=== PATIENT | male | born 1955 | race Caucasian/White ===

== ENCOUNTER 2019-04-15 16:10 | Emergency (ER) | payer BC ==
--- NOTE | 2019-04-15 16:35 | ED ---
General Adult HPI - General Chief complaint: Extremity Injury, Upper Stated complaint: Thumb injury Time Seen by Provider: 04/15/19 16:20 Source: patient Mode of arrival: ambulatory Limitations: no limitations - History of Present Illness Initial comments: Patient is a 64-year-old male presenting to the emergency Department with complaints of swelling of his right thumb x today. 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 Patient denies any injuries to the thumb. Patient was worried that he was working with chemicals and this made his thumbs follow-up. Patient denies any previous injuries of his thumb or right hand. Patient denies being on blood thinners. Patient denies fever, chills. Patient has no other complaints at this time. - Related Data Allergies Allergy/AdvReac Type Severity Reaction Status Date / Time No Known Allergies Allergy Verified 04/15/19 16:15 Review of Systems ROS Statement: Those systems with pertinent positive or pertinent negative responses have been documented in the HPI. ROS Other: All systems not noted in ROS Statement are negative. Past Medical History Past Medical History: Hypertension History of Any Multi-Drug Resistant Organisms: None Reported Past Surgical History: Orthopedic Surgery Past Psychological History: No Psychological Hx Reported Smoking Status: Never smoker Past Alcohol Use History: Occasional Past Drug Use History: None Reported General Exam - General Exam Comments Initial Comments: GENERAL: Well-appearing, well-nourished and in no acute distress. HEAD: Atraumatic, normocephalic. EYES: Pupils equal round and reactive to light, extraocular movements intact, sclera anicteric, conjunctiva are normal. ENT: TMs normal, nares patent, oropharynx clear without exudates. Moist mucous membranes. NECK: Normal range of motion, supple without lymphadenopathy or JVD. LUNGS: Breath sounds clear to auscultation bilaterally and equal. No wheezes rales or rhonchi. HEART: Regular rate and rhythm without murmurs, rubs or gallops. ABDOMEN: Soft, nontender, normoactive bowel sounds. No guarding, no rebound. No masses appreciated. : Deferred EXTREMITIES: Normal range of motion of right thumb. Patient has mild swelling to the base of the right thumb as well as some mild bruising consistent with a blood vessel rupture. No pain with palpation. Neurovascular intact. No clubbing or cyanosis. NEUROLOGICAL: Cranial nerves II through XII grossly intact. Normal speech, normal gait. PSYCH: Normal mood, normal affect. SKIN: Warm, Dry, normal turgor, no rashes or lesions noted. Limitations: no limitations Course Vital Signs 04/15/19 16:13 Temperature 98.0 F Pulse Rate 82 Respiratory 18 Rate Blood Pressure 163/94 O2 Sat by Pulse 100 Oximetry Medical Decision Making - Medical Decision Making Patient is a 64-year-old male presenting with right thumb swelling and bruising that started today. Patient has been using his hand mostly day, cleaning when he noticed swelling and bruising on his right thumb. On exam patient has mild swelling and bruising of the bases right thumb. Range of motion is normal. Strength is normal. No pain with palpation. His symptoms are consistent with a small blood vessel rupture at the base of his thumb. Discussed using compression and ice. Follow-up with PCP if symptoms persist over 1-2 weeks. Patient is in agreement with this plan of care. Return parameters were discussed with the patient he verbalizes understanding. Patient is stable for discharge at this time. Case discussed with Dr. Sung. Disposition Clinical Impression: Contusion of right thumb Disposition: HOME SELF-CARE Condition: Stable Instructions (If sedation given, give patient instructions): Contusion in Adults (ED) Additional Instructions: Please return to the Emergency Department if symptoms worsen or any other concerns. Follow-up with PCP if symptoms persist over 1 week without improvement. Is patient prescribed a controlled substance at d/c from ED?: No Referrals: Nonstaff,Physician [Primary Care Provider] - 1-2 days
[2019-04-15 16:41] VITALS: BP 163/94; PULSE 82; RESP 18; TEMP 98
== END 2019-04-15 17:03 | disposition home or self-care (01) ==
LOC: EC 16:10
DX: S60.011A Contusion of right thumb without damage to nail, initial encounter (principal); X58.XXXA Exposure to other specified factors, initial encounter; Y92.009 Unspecified place in unspecified non-institutional (private) residence as the place of occurrence of the external cause
CPT/HCPCS: 99283

== ENCOUNTER 2019-10-02 14:44 | Emergency (ER) | payer BC ==
[2019-10-02 14:51] VITALS: BP 174/97; PULSE 82; RESP 20; TEMP 97.5
[2019-10-02] MEDS ORDERED: DIPH,PERTUS(ACELL)TETVAC-LF 0.5 ML VIAL IM ONE (15:02)
--- NOTE | 2019-10-02 15:32 | CT ---
EXAMINATION TYPE: CT brain rica patel DATE OF EXAM: 10/02/2019 COMPARISON: None HISTORY: Fall with right parietal head injury. CT DLP: 1416.[address] of the brain was performed. The ventricles, basal cisterns and sulci overlying the cerebral convexities demonstrate enlargement. There is no evidence for intracranial hemorrhage or sulcal effacement. There is decreased attenuatio n about the periventricular white matter and deep white matter of both cerebral hemispheres, compatib le with chronic small vessel ischemia. No mass effects are seen. If symptoms persist consider MRI. Osseous calvarium is intact. Right parietal laceration noted and small scalp hematoma. IMPRESSION: 1. Age related atrophic and chronic small vessel ischemic change without acute intracranial process seen at this time. CT Cervical Spine: Unenhanced CT of the cervical spine was performed with bone and soft tissue window settings submitted . Coronal and sagittal reconstruction is obtained. There is normal alignment and prevertebral soft tissues. No evidence for acute cervical fracture . Scattered degenerative disc disease and spondylosis. Biapical scarring. IMPRESSION: 1. No evidence for acute fracture or subluxation of the cervical spine.
--- NOTE | 2019-10-02 15:44 | ED ---
Fall HPI - General Chief Complaint: Fall Stated Complaint: head injury Time Seen by Provider: 10/02/19 14:54 Source: patient Mode of arrival: ambulatory - History of Present Illness Initial Comments: 64-year-old male patient presents to the emergency department today for evaluation after sustaining a head injury. Patient states that he slipped on ice and fell striking his head on a [employer] boat trailer. Patient denies any loss of consciousness with this injury. Patient is mostly concerned because he is starting with radiation treatments for prostate cancer tomorrow. Patient denies any current headache, blurred vision, double vision, nausea, or vomiting. Denies any dizziness or weakness. Patient states he does take a baby aspirin daily but denies any use of other anticoagulants or antiplatelet medications. He denies any neck or back pain or other injuries. States his last tetanus vaccine was around 10 years ago. Patient denies any chest pain, shortness of breath, abdominal pain, nausea, vomiting, or difficulties with bowel movements or urination. - Related Data Allergies Allergy/AdvReac Type Severity Reaction Status Date / Time No Known Allergies Allergy Verified 10/02/19 14:51 Review of Systems ROS Statement: Those systems with pertinent positive or pertinent negative responses have been documented in the HPI. ROS Other: All systems not noted in ROS Statement are negative. Past Medical History Past Medical History: Cancer, Hypertension, Prostate Disorder History of Any Multi-Drug Resistant Organisms: None Reported Past Surgical History: Orthopedic Surgery Past Psychological History: No Psychological Hx Reported Smoking Status: Never smoker Past Alcohol Use History: Occasional Past Drug Use History: None Reported General Exam Limitations: no limitations General appearance: alert, in no apparent distress, other (This is a well- developed, well-nourished adult male patient in no acute distress. Vital signs upon presentation are temperature 97.5F, pulse 82, respirations 20, blood pressure 174/97, pulse ox 96% on room air.) Head exam: Present: other (There is a 6 cm laceration noted to the right parietal scalp with surrounding soft tissue swelling and tenderness.) Eye exam: Present: normal appearance, PERRL, EOMI. Absent: scleral icterus, conjunctival injection, nystagmus, periorbital swelling ENT exam: Present: normal exam, normal oropharynx, mucous membranes moist, TM's normal bilaterally (No hemotympanum) Neck exam: Present: normal inspection, full ROM, other (Nontender, no step-off, no deformity to firm midline palpation of the posterior cervical spine. Full range of motion without pain or limitation.). Absent: tenderness, meningismus, lymphadenopathy Respiratory exam: Present: normal lung sounds bilaterally. Absent: respiratory distress, wheezes, rales, rhonchi, stridor Cardiovascular Exam: Present: regular rate, normal rhythm, normal heart sounds. Absent: systolic murmur, diastolic murmur, rubs, gallop, clicks GI/Abdominal exam: Present: soft, normal bowel sounds. Absent: distended, tenderness, guarding, rebound, rigid Extremities exam: Present: normal inspection, full ROM, normal capillary refill. Absent: tenderness, pedal edema, joint swelling, calf tenderness Back exam: Present: normal inspection, other (Nontender, no step-off, no deformity to firm midline palpation of the thoracic and lumbar vertebrae. Full range of motion without pain or limitation.). Absent: vertebral tenderness Neurological exam: Present: alert, oriented X3, CN II-XII intact Psychiatric exam: Present: normal affect, normal mood Skin exam: Present: warm, dry, intact, normal color. Absent: rash Course Vital Signs 10/02/19 14:46 Temperature 97.5 F L Pulse Rate 82 Respiratory 20 Rate Blood Pressure 174/97 O2 Sat by Pulse 96 Oximetry Procedures - Laceration Laceration #1 Consent Obtained: verbal consent Indication: laceration Site: scalp (Right parietal scalp) Size (cm): 6 Description: linear Depth: simple, single layer Pre-repair: irrigated extensively Number of Sutures: 7 Technique: other ([place]) Patient Tolerated Procedure: well, no complications Medical Decision Making - Medical Decision Making 64-year-old male patient presented to the emergency department today for evaluation of laceration with head injury to the right parietal scalp. Physical examination did reveal 6 on a laceration with soft tissue swelling. Patient was neurologically intact with no focal deficits. Wound was repaired as documented. CT brain C-spine were negative for any acute abnormalities. Patient will be discharged home to follow-up with his primary care physician for recheck in 1-2 days. We did discuss signs and symptoms of worsening head injury and infection as well as wound care instructions. He is instructed to return in 7 days to get the deirdre removed. Return parameters were discussed in detail. He verbalizes understanding and agrees with this plan. - Radiology Data Radiology results: report reviewed, image reviewed CT brain C-spine without contrast was obtained. Report is reviewed in its entirety. Impression by Dr. Munson shows age-related atrophic and chronic small vessel ischemic change without acute intracranial process seen at this time. No evidence for acute fracture or subluxation of the cervical spine. Disposition Clinical Impression: Head injury, Scalp laceration, Scalp hematoma Disposition: HOME SELF-CARE Condition: Good Instructions (If sedation given, give patient instructions): Laceration (ED), Staple Care (ED) Additional Instructions: Keep wound clean and dry. Return in 7 days to have the deirdre removed. Monitor for signs of infection including redness, drainage of pus, fever, or chills. Itc marya is normal once the laceration starts to heal. Monitor for signs or symptoms of worsening head injury including but not limited to headache, vomiting, dizziness, or confusion. Follow-up with her primary care physician for recheck in 1-2 days. Return to the emergency department immediately for any new, worsening, or concerning symptoms. Is patient prescribed a controlled substance at d/c from ED?: No Referrals: Nonstaff,Physician [Primary Care Provider] - 1-2 days Time of Disposition: 16:01
== END 2019-10-02 16:09 | disposition home or self-care (01) ==
LOC: EC 14:44
DX: S01.01XA Laceration without foreign body of scalp, initial encounter (principal); M79.89 Other specified soft tissue disorders; C61 Malignant neoplasm of prostate; Z23 Encounter for immunization; Z79.82 Long term (current) use of aspirin; W01.198A Fall on same level from slipping, tripping and stumbling with subsequent striking against other object, initial encounter; Y92.009 Unspecified place in unspecified non-institutional (private) residence as the place of occurrence of the external cause
CPT/HCPCS: 12002; 70450; 72125; 90471; 90715; 99283

== ENCOUNTER → 2020-03-15 | Outpatient (CLI) | payer BC | END | disposition home or self-care (01) | LOC: LABWHC1 09:59 | PROVIDERS: ATTEND Internal Medicine | DX: R05 Cough (principal) | CPT/HCPCS: U0003; C9803 ==

== ENCOUNTER 2020-05-12 16:42 | Emergency (ER) | payer BC ==
[2020-05-12 16:50] VITALS: RESP 18; TEMP 98.2
[2020-05-12] MEDS ORDERED: MORPHINE SULFATE 4 MG/ML SYRINGE IVP STA (17:52)
[2020-05-12] MEDS ORDERED: ONDANSETRON 4 MG/2 ML VIAL IVP STA (17:53)
--- NOTE | 2020-05-12 17:53 | ED ---
General Adult HPI - General Chief complaint: Abdominal Pain Stated complaint: abd pain Time Seen by Provider: 05/12/20 17:11 Source: patient Mode of arrival: ambulatory Limitations: no limitations - History of Present Illness Initial comments: Dictation was produced using [employer] dictation software. please excuse any grammatical, word or spelling errors. This patient was cared for during a federal and state declared state of emergency secondary to Covid 19 Chief Complaint: 65-year-old male presents with abdominal pain History of Present Illness: Is 65-year-old male who has past medical history of kidney stones, hypertension prostate cancer. Patient states that he's had abdominal pain for approximately 3-4 hours. Patient states that his symptoms are similar to his kidney stones however seem different. He states his symptoms started his right upper quadrant however since then it's rated down to his right groin and now it's in his right lower back. Patient states he has history of chronic back pain he gets back injections. Patient has a fever, chills or night sweats. He has had nausea and vomiting and states his emesis appears slightly green. The ROS documented in this emergency department record has been reviewed and confirmed by me. Those systems with pertinent positive or negative responses have been documented in the HPI. All other systems are other negative and/or noncontributory. PHYSICAL EXAM: General Impression: Alert and oriented x3, mild distress secondary to pain HEENT: Normocephalic atraumatic, extra-ocular movements intact, pupils equal and reactive to light bilaterally, mucous membranes moist. Cardiovascular: Heart regular rate and rhythm Chest: Able to complete full sentences, no retractions, no tachypnea Abdomen: abdomen soft, non-tender, non-distended, no organomegaly Musculoskeletal: Pulses present and equal in all extremities, no peripheral edema Motor: no focal deficits noted Neurological: CN II-XII grossly intact, no focal motor or sensory deficits noted Skin: Intact with no visualized rashes Psych: Normal affect and mood ED course: 65-year-old male presents with abdominal pain and flank pain. As upon arrival are within acceptable limits. Does have a history of kidney stones however symptoms today are atypical for his usual kidney stone pain. Does have a constitutional symptoms. His abdomen is soft Computed tomography scan down and pelvis without contrast shows obstructing calculus at the right ureteral pelvic junction. Laboratory evaluation obtained. CBC, coag panel, metabolic panel is unremarkable. Stone is measuring 7 mm with right-sided hydronephrosis. Patient given intravenous fluids and IV analgesia. Patient reevaluated after several hours of observation emergency department. He reports significant improvement of symptoms. There is some suspicion that patient passed the stone spontaneously while in the ER. Nonetheless patient is well-appearing heel be discharge. Told to follow-up with his urologist out of [place]. Patient given prescription for analgesia. Patient agreeable with disposition. EKG interpretation: Ventricular rate 63, normal sinus rhythm, AR interval 198, QRS 90, QTC 452. No AR prolongation, no QTC prolongation, no ST or T-wave changes noted. . Overall, this EKG is unremarkable - Related Data Previous Rx's Medication Instructions Recorded HYDROcodone/APAP 5-325MG [Omak 1 tab PO Q6HR PRN 3 Days #12 tab 05/12/20 5-325] Allergies Allergy/AdvReac Type Severity Reaction Status Date / Time No Known Allergies Allergy Verified 05/12/20 16:48 Review of Systems ROS Statement: Those systems with pertinent positive or pertinent negative responses have been documented in the HPI. ROS Other: All systems not noted in ROS Statement are negative. Past Medical History Past Medical History: Cancer, Hypertension, Prostate Disorder Additional Past Medical History / Comment(s): prostate CA- History of Any Multi-Drug Resistant Organisms: None Reported Past Surgical History: Orthopedic Surgery Past Psychological History: No Psychological Hx Reported Smoking Status: Never smoker Past Alcohol Use History: Occasional Past Drug Use History: None Reported General Exam Limitations: no limitations Course Vital Signs 05/12/20 05/12/20 16:48 19:01 Temperature 98.2 F Pulse Rate 68 65 Respiratory 18 18 Rate Blood Pressure 152/83 114/62 O2 Sat by Pulse 98 96 Oximetry Medical Decision Making - Lab Data Result diagrams: 05/12/20 17:52 05/12/20 17:52 Lab Results 05/12/20 05/12/20 05/12/20 Range/Units 17:52 17:52 17:52 WBC 10.1 (3.8-10.6) k/uL RBC 4.06 L (4.30-5.90) m/uL Hgb 12.8 L (13.0-17.5) gm/dL Hct 39.5 (39.0-53.0) % MCV 97.4 (80.0-100.0) fL MCH 31.4 (25.0-35.0) pg MCHC 32.3 (31.0-37.0) g/dL RDW 13.4 (11.5-15.5) % Plt Count 240 (150-450) k/uL Neutrophils % 79 % Lymphocytes % 10 % Monocytes % 6 % Eosinophils % 3 % Basophils % 0 % Neutrophils # 8.0 H (1.3-7.7) k/uL Lymphocytes # 1.1 (1.0-4.8) k/uL Monocytes # 0.6 (0-1.0) k/uL Eosinophils # 0.3 (0-0.7) k/uL Basophils # 0.0 (0-0.2) k/uL PT 9.5 (9.0-12.0) sec INR 0.9 (<1.2) APTT 22.1 (22.0-30.0) sec Sodium 135 L (137-145) mmol/L Potassium 4.2 (3.5-5.1) mmol/L Chloride 102 (98-107) mmol/L Carbon Dioxide 27 (22-30) mmol/L Anion Gap 6 mmol/L BUN 24 H (9-20) mg/dL Creatinine 1.21 (0.66-1.25) mg/dL Est GFR (CKD-EPI)AfAm 74 (>60 ml/min/1.73 sqM) Est GFR (CKD-EPI)NonAf 64 (>60 ml/min/1.73 sqM) Glucose 110 H (74-99) mg/dL Calcium 10.1 (8.4-10.2) mg/dL Total Bilirubin 0.3 (0.2-1.3) mg/dL AST 34 (17-59) U/L ALT 31 (4-49) U/L Alkaline Phosphatase 95 (38-126) U/L Total Protein 6.6 (6.3-8.2) g/dL Albumin 4.2 (3.5-5.0) g/dL Disposition Clinical Impression: Nephrolithiasis Disposition: HOME SELF-CARE Condition: Good Instructions (If sedation given, give patient instructions): Kidney Stones (ED) Additional Instructions: Follow-up with your urologist. Prescriptions: HYDROcodone/APAP 5-325MG [Omak 5-325] 1 tab PO Q6HR PRN 3 Days #12 tab PRN Reason: Severe Pain Is patient prescribed a controlled substance at d/c from ED?: Yes If prescribed controlled substance>3 days was MAPS reviewed?: Prescribed <3 Days Referrals: Jesica Torres MD [Primary Care Provider] - 1-2 days Time of Disposition: 20:58
[2020-05-12 18:08] LABS: Basophils % (A) 0 %; Eosinophils # (A) 0.3 k/uL (0-0.7); Eosinophils % (A) 3 %; HCT 39.5 % (39.0-53.0); HGB 12.8 gm/dL (13.0-17.5); Lymphocytes # (A) 1.1 k/uL (1.0-4.8); Lymphocytes % (A) 10 %; MCH 31.4 pg (25.0-35.0); MCHC 32.3 g/dL (31.0-37.0); MCV 97.4 fL (80.0-100.0); Monocytes # (A) 0.6 k/uL (0-1.0); Monocytes % (A) 6 %; Neutrophils % (A) 79 %; Platelet Count 240 k/uL (150-450); RBC 4.06 m/uL (4.30-5.90); RDW 13.4 % (11.5-15.5); WBC 10.1 k/uL (3.8-10.6)
[2020-05-12 18:17] LABS: Albumin 4.2 g/dL (3.5-5.0); Calcium 10.1 mg/dL (8.4-10.2); Potassium 4.2 mmol/L (3.5-5.1); Total Bilirubin 0.3 mg/dL (0.2-1.3); Total Protein 6.6 g/dL (6.3-8.2)
[2020-05-12 18:20] LABS: INR 0.9 (<1.2); Partial Thromboplastin Time 22.1 sec (22.0-30.0); Prothrombin Time 9.5 sec (9.0-12.0)
--- NOTE | 2020-05-12 18:50 | CT ---
EXAMINATION TYPE: CT abdomen pelvis wo con DATE OF EXAM: 05/12/2020 COMPARISON: None HISTORY: Right flank and RLQ pain CT DLP: 1161.4 mGycm Automated exposure control for dose reduction was used. Lung bases are clear of consolidation. There is minimal subsegmental atelectasis left lung base. Ther e is no pleural effusion. Heart appears normal. There is no pericardial effusion. Liver spleen stomach pancreas gallbladder appear normal. Bile ducts are not dilated. There is no adre nal mass. There is right-sided perinephric fat stranding. There is right side hydronephrosis with obstructing c alculus measuring 7 mm at the ureteral pelvic junction. There are multiple bilateral renal calculi. T here is 10 mm calculus lower pole left kidney. There are left-sided renal parapelvic cysts. There is no sign of obstruction on the left side. There is no retroperitoneal adenopathy. Bladder distends smoothly. There is no inguinal hernia. There is no free fluid in the pelvis. There is no mesenteric edema. There is no ascites or free air. Appendix is medial and posterior and a ppears normal. There is no evidence of bowel obstruction. The lumbar vertebra have normal alignment. Disc spaces are fairly normal. There is no compression fracture. The hip joints are intact. Bony pelvis is intact. IMPRESSION: Obstructing calculus at the right ureteropelvic junction. Multiple bilateral renal calculi.
[2020-05-12 19:02] VITALS: BP 114/62; PULSE 65
[2020-05-12] MEDS ORDERED: HYDROmorphone 1 MG/ML 1 ML SYRINGE IVP STA (19:03)
[2020-05-12] MEDS ORDERED: SODIUM CHLORIDE 0.9% 1,000 ML IV STA ×2 (19:06→19:34)
[2020-05-12] MEDS ORDERED: KETOROLAC 15 MG/ML 1 ML VIAL IVP STA (19:06)
[2020-05-12 21:08] LABS: Appearance,Urine Clear (Clear); Bilirubin,Urine Negative (Negative); Blood,Urine Moderate (Negative); Color,Urine Yellow; Glucose,Urine (UA) Negative (Negative); Hyaline Casts,Urine 1 /lpf (0-2); Ketones,Urine Negative (Negative); Leukocyte Esterase,Urine Negative (Negative); Mucus,Urine Rare /hpf; Nitrite,Urine Negative (Negative); Protein,Urine Negative (Negative); RBC,Urine 50 /hpf (0-5); Specific Gravity,Urine 1.019 (1.001-1.035); Squamous Epithelial Cell,Urine <1 /hpf (0-4); Urobilinogen,Urine <2.0 mg/dL (<2.0); WBC,Urine 2 /hpf (0-5)
== END 2020-05-12 21:21 | disposition home or self-care (01) ==
LOC: EC 16:42
DX: N13.2 Hydronephrosis with renal and ureteral calculous obstruction (principal); Z85.46 Personal history of malignant neoplasm of prostate; Z87.442 Personal history of urinary calculi
CPT/HCPCS: 36415; 93005; 80053; 85025; 85610; 85730; 81001; 74176; 99284; 96374; 96375 ×3; 96361; J2270; J2405; J1170; J1885

== ENCOUNTER 2020-06-30 22:49 | Inpatient (IN) | payer BC ==
[2020-06-30] MEDS ORDERED: SODIUM CHLORIDE 0.9% 1,000 ML IV STA ×2 (23:12)
[2020-06-30] MEDS ORDERED: MORPHINE SULFATE 4 MG/ML SYRINGE IV STA (23:12)
[2020-06-30] MEDS ORDERED: SODIUM CHLORIDE 0.9% 500 ML 500 ML IV STA (23:12)
--- NOTE | 2020-06-30 23:37 | ED ---
Fever HPI - General Chief Complaint: Fever Stated Complaint: Kidney stones Time Seen by Provider: 06/30/20 23:03 Source: patient, RN notes reviewed, old records reviewed Mode of arrival: ambulatory Limitations: no limitations - History of Present Illness Initial Comments: This is a 65-year-old male DF for evaluation patient Dese for evaluation regards to fever and left kidney pain. Patient has known stents coming in for evaluation regarding fever possible urinary tract infection. Decreased urinary output. Patient has no nausea vomiting drinking water is appropriate. Patient did cause on-call urologist was sent DF for evaluation, patient is recent prostate surgery with stent placement; removal in the meantime stones were broken up. Patient Dese again with fever from likely UTI origin MD Complaint: fever, weakness -: minutes(s) Temperature Source: subjective, oral Context: multiple patients with similar symptoms Associated Symptoms: denies other symptoms Treatments Prior to Arrival: none - Related Data Home Medications Medication Instructions Recorded Confirmed Cephalexin [Keflex] 500 mg PO TID 07/01/20 07/01/20 Docusate [Colace] 100 mg PO BID 07/01/20 07/01/20 Famotidine 20 mg PO BID 07/01/20 07/01/20 Ibuprofen [Motrin Ib] 200 mg PO Q6H PRN 07/01/20 07/01/20 Metoprolol Succinate (ER) [Toprol 50 mg PO DAILY 07/01/20 07/01/20 Xl] Rosuvastatin [Crestor] 20 mg PO DAILY 07/01/20 07/01/20 Tamsulosin [Flomax] 0.4 mg PO DAILY 07/01/20 07/01/20 metFORMIN HCL ER [Glucophage Xr] 500 mg PO DAILY 07/01/20 07/01/20 Allergies Allergy/AdvReac Type Severity Reaction Status Date / Time No Known Allergies Allergy Verified 07/01/20 00:07 Review of Systems ROS Statement: Those systems with pertinent positive or pertinent negative responses have been documented in the HPI. ROS Other: All systems not noted in ROS Statement are negative. Past Medical History Past Medical History: Cancer, Hypertension, Prostate Disorder Additional Past Medical History / Comment(s): prostate CA- History of Any Multi-Drug Resistant Organisms: None Reported Past Surgical History: Orthopedic Surgery Past Psychological History: No Psychological Hx Reported Smoking Status: Never smoker Past Alcohol Use History: Occasional Past Drug Use History: None Reported General Exam Limitations: no limitations General appearance: alert, in no apparent distress Head exam: Present: atraumatic, normocephalic, normal inspection Eye exam: Present: normal appearance, PERRL, EOMI. Absent: scleral icterus, conjunctival injection, periorbital swelling ENT exam: Present: normal exam, mucous membranes moist Neck exam: Present: normal inspection. Absent: tenderness, meningismus, lym phadenopathy Respiratory exam: Present: normal lung sounds bilaterally. Absent: respiratory distress, wheezes, rales, rhonchi, stridor Cardiovascular Exam: Present: regular rate, normal rhythm, normal heart sounds. Absent: systolic murmur, diastolic murmur, rubs, gallop, clicks GI/Abdominal exam: Present: soft, normal bowel sounds. Absent: distended, tenderness, guarding, rebound, rigid Extremities exam: Present: normal inspection, full ROM, normal capillary refill. Absent: tenderness, pedal edema, joint swelling, calf tenderness Back exam: Present: normal inspection Neurological exam: Present: alert, oriented X3, CN II-XII intact Psychiatric exam: Present: normal affect, normal mood Skin exam: Present: warm, dry, intact, normal color. Absent: rash Course Vital Signs 06/30/20 07/01/20 07/01/20 22:52 00:10 01:00 Temperature 102.0 F H 99.3 F Pulse Rate 107 H 86 84 Respiratory 18 19 19 Rate Blood Pressure 159/80 123/71 112/65 O2 Sat by Pulse 97 94 L 94 L Oximetry - Reevaluation(s) Reevaluation #1: 07/01/20 02:23 Medical records reviewed Reevaluation #2: 07/01/20 02:24 Patient rechecked, fever improved pain improve symptoms improved in no distress Reevaluation #3: 07/01/20 02:24 Spoke with patient and patient's family, they prefer admission re-watched here overnight to see if he infection can be taking care of without further surgical intervention - Consultations Consultation #1: Spoke with [facility] were agreeable to admit this patient Medical Decision Making - Medical Decision Making 62 female of recent prostate surgery coming in for pain and fever. Patient has urinary tract infection, known bilateral ureteral stents as well as bilateral kidney stones. Kidney function is normal white count is normal patient did have fever. [place] for IV antibiotics and urology to consult - Lab Data Result diagrams: 06/30/20 23:48 06/30/20 23:48 Lab Results 06/30/20 06/30/20 06/30/20 Range/Units 23:48 23:48 23:48 WBC 9.5 (3.8-10.6) k/uL RBC 3.35 L (4.30-5.90) m/uL Hgb 10.4 L (13.0-17.5) gm/dL Hct 31.9 L (39.0-53.0) % MCV 95.0 (80.0-100.0) fL MCH 30.9 (25.0-35.0) pg MCHC 32.5 (31.0-37.0) g/dL RDW 13.2 (11.5-15.5) % Plt Count 230 (150-450) k/uL MPV 7.1 Neutrophils % 87 % Lymphocytes % 4 % Monocytes % 6 % Eosinophils % 1 % Basophils % 0 % Neutrophils # 8.2 H (1.3-7.7) k/uL Lymphocytes # 0.4 L (1.0-4.8) k/uL Monocytes # 0.5 (0-1.0) k/uL Eosinophils # 0.1 (0-0.7) k/uL Basophils # 0.0 (0-0.2) k/uL Sodium 132 L (137-145) mmol/L Potassium 3.7 (3.5-5.1) mmol/L Chloride 99 (98-107) mmol/L Carbon Dioxide 27 (22-30) mmol/L Anion Gap 6 mmol/L BUN 17 (9-20) mg/dL Creatinine 1.07 (0.66-1.25) mg/dL Est GFR (CKD-EPI)AfAm 86 (>60 ml/min/1.73 sqM) Est GFR (CKD-EPI)NonAf 74 (>60 ml/min/1.73 sqM) Glucose 174 H (74-99) mg/dL Plasma Lactic Acid Srid[place] (0.7-2.0) mmol/L Calcium 9.1 (8.4-10.2) mg/dL Phosphorus 2.0 L (2.5-4.5) mg/dL Magnesium 1.7 (1.6-2.3) mg/dL Total Bilirubin 0.4 (0.2-1.3) mg/dL AST 26 (17-59) U/L ALT 22 (4-49) U/L Alkaline Phosphatase 88 (38-126) U/L Lactate Dehydrogenase 419 (313-618) U/L Creatine Kinase 29 L (55-170) U/L Troponin I (0.000-0.034) ng/mL C-Reactive Protein 195.3 H (<10.0) mg/L Total Protein 5.7 L (6.3-8.2) g/dL Albumin 3.1 L (3.5-5.0) g/dL Urine Color Yellow Urine Appearance Cloudy (Clear) Urine pH 6.0 (5.0-8.0) Ur Specific [place] 1.018 (1.001-1.035) Urine Protein 2+ H (Negative) Urine Glucose (UA) Trace H (Negative) Urine Ketones Negative (Negative) Urine Blood Moderate H (Negative) Urine Nitrite Negative (Negative) Urine Bilirubin Negative (Negative) Urine Urobilinogen <2.0 (<2.0) mg/dL Ur Leukocyte Esterase Large H (Negative) Urine RBC 59 H (0-5) /hpf Urine WBC >182 H (0-5) /hpf Ur Squamous Epith Cells <1 (0-4) /hpf Urine Mucus Occasional H (None) /hpf 06/30/20 06/30/20 Range/Units 23:48 23:48 WBC (3.8-10.6) k/uL RBC (4.30-5.90) m/uL Hgb (13.0-17.5) gm/dL Hct (39.0-53.0) % MCV (80.0-100.0) fL MCH (25.0-35.0) pg MCHC (31.0-37.0) g/dL RDW (11.5-15.5) % Plt Count (150-450) k/uL MPV Neutrophils % % Lymphocytes % % Monocytes % % Eosinophils % % Basophils % % Neutrophils # (1.3-7.7) k/uL Lymphocytes # (1.0-4.8) k/uL Monocytes # (0-1.0) k/uL Eosinophils # (0-0.7) k/uL Basophils # (0-0.2) k/uL Sodium (137-145) mmol/L Potassium (3.5-5.1) mmol/L Chloride (98-107) mmol/L Carbon Dioxide (22-30) mmol/L Anion Gap mmol/L BUN (9-20) mg/dL Creatinine (0.66-1.25) mg/dL Est GFR (CKD-EPI)AfAm (>60 ml/min/1.73 sqM) Est GFR (CKD-EPI)NonAf (>60 ml/min/1.73 sqM) Glucose (74-99) mg/dL Plasma Lactic Acid Srid[place] 1.1 (0.7-2.0) mmol/L Calcium (8.4-10.2) mg/dL Phosphorus (2.5-4.5) mg/dL Magnesium (1.6-2.3) mg/dL Total Bilirubin (0.2-1.3) mg/dL AST (17-59) U/L ALT (4-49) U/L Alkaline Phosphatase (38-126) U/L Lactate Dehydrogenase (313-618) U/L Creatine Kinase (55-170) U/L Troponin I <0.012 (0.000-0.034) ng/mL C-Reactive Protein (<10.0) mg/L Total Protein (6.3-8.2) g/dL Albumin (3.5-5.0) g/dL Urine Color Urine Appearance (Clear) Urine pH (5.0-8.0) Ur Specific [place] (1.001-1.035) Urine Protein (Negative) Urine Glucose (UA) (Negative) Urine Ketones (Negative) Urine Blood (Negative) Urine Nitrite (Negative) Urine Bilirubin (Negative) Urine Urobilinogen (<2.0) mg/dL Ur Leukocyte Esterase (Negative) Urine RBC (0-5) /hpf Urine WBC (0-5) /hpf Ur Squamous Epith Cells (0-4) /hpf Urine Mucus (None) /hpf - EKG Data -: EKG Interpreted by Me (EKG shows sinus rhythm 88, [place] 172 QRS 90 QTC 423) - Radiology Data Radiology results: report reviewed (CT abdomen and pelvis does show bilateral stent placement, bilateral kidney stones), image reviewed Disposition Clinical Impression: UTI (urinary tract infection), Fever, Bilateral kidney stones Disposition: ADMITTED IP TO THIS [facility] Instructions (If sedation given, give patient instructions): Fever in Adults (ED) Referrals: Jesica Torres MD [Primary Care Provider] - 1-2 days
[2020-06-30] MEDS ORDERED: KETOROLAC 15 MG/ML 1 ML VIAL IVP STA (23:38)
[2020-06-30 23:59] LABS: Basophils % (A) 0 %; Eosinophils # (A) 0.1 k/uL (0-0.7); Eosinophils % (A) 1 %; HCT 31.9 % (39.0-53.0); HGB 10.4 gm/dL (13.0-17.5); Lymphocytes # (A) 0.4 k/uL (1.0-4.8); Lymphocytes % (A) 4 %; MCH 30.9 pg (25.0-35.0); MCHC 32.5 g/dL (31.0-37.0); Mean Platelet Volume 7.1; Monocytes # (A) 0.5 k/uL (0-1.0); Monocytes % (A) 6 %; Neutrophils # (A) 8.2 k/uL (1.3-7.7); Neutrophils % (A) 87 %; Platelet Count 230 k/uL (150-450); RBC 3.35 m/uL (4.30-5.90); RDW 13.2 % (11.5-15.5); WBC 9.5 k/uL (3.8-10.6)
[2020-07-01 00:13] LABS: Albumin 3.1 g/dL (3.5-5.0); Calcium 9.1 mg/dL (8.4-10.2); Magnesium 1.7 mg/dL (1.6-2.3); Potassium 3.7 mmol/L (3.5-5.1); Total Bilirubin 0.4 mg/dL (0.2-1.3); Total Protein 5.7 g/dL (6.3-8.2)
[2020-07-01 00:27] LABS: C Reactive Protein 195.3 mg/L (<10.0)
[2020-07-01 00:31] LABS: Appearance,Urine Cloudy (Clear); Bilirubin,Urine Negative (Negative); Blood,Urine Moderate (Negative); Color,Urine Yellow; Glucose,Urine (UA) Trace (Negative); Ketones,Urine Negative (Negative); Leukocyte Esterase,Urine Large (Negative); Mucus,Urine Occasional /hpf; Nitrite,Urine Negative (Negative); Protein,Urine 2+ (Negative); RBC,Urine 59 /hpf (0-5); Specific Gravity,Urine 1.018 (1.001-1.035); Squamous Epithelial Cell,Urine <1 /hpf (0-4); Urobilinogen,Urine <2.0 mg/dL (<2.0); WBC,Urine >182 /hpf (0-5)
--- NOTE | 2020-07-01 00:50 | XR ---
EXAM: XR Chest, 1 View CLINICAL HISTORY: ITS.REASON XR Reason: Suspected COVID-19 pneumonia TECHNIQUE: Frontal view of the chest. COMPARISON: No previous study. FINDINGS: Lungs: The lungs are well aerated. No consolidative change. Pleural space: No pleural effusion. No pneumothorax. Heart: Cardiomediastinal silhouette unremarkable. Mediastinum: See above. Bones/joints: The ribs are grossly unremarkable. IMPRESSION: No active disease.
--- NOTE | 2020-07-01 01:30 | CT ---
EXAM: CT Abdomen and Pelvis Without Intravenous Contrast CLINICAL HISTORY: Pain. TECHNIQUE: Axial computed tomography images of the abdomen and pelvis without intravenous contrast. CTDI is 18.77 mGy and DLP is 1118.4 mGy-cm. This CT exam was performed using one or more of the following dose reduction techniques: automated exposure control, adjustment of the mA and/or kV according to patient size, and/or use of iterative reconstruction technique. COMPARISON: May 12, 2020. FINDINGS: Lung bases: Unremarkable. No mass. No consolidation. ABDOMEN: Liver: Unremarkable. Gallbladder and bile ducts: Unremarkable. No calcified stones. No ductal dilation. Pancreas: Unremarkable. No ductal dilation. Spleen: Unremarkable. No splenomegaly. Adrenals: Unremarkable. No mass. Kidneys and ureters: Since the prior study, there has been placement of bilateral ureteral stents which appear in good position. There is mild bilateral hydronephrosis. Hydronephrosis on the right has improved. There appear to be at least 2 stones adjacent to the right ureteral stent in the proximal to mid right ureter measuring 3-4 mm. There is the appearance of at least 3-4 very small stones adjacent to the left ureteral stent. Stomach and bowel: Unremarkable. No obstruction. No mucosal thickening. PELVIS: Appendix: No findings to suggest acute appendicitis. Bladder: Unremarkable. No stones. Reproductive: Unremarkable as visualized. ABDOMEN and PELVIS: Intraperitoneal space: Unremarkable. No free air. No significant fluid collection. Bones/joints: No acute fracture. No dislocation. Soft tissues: Unremarkable. Vasculature: Unremarkable. No abdominal aortic aneurysm. Lymph nodes: Unremarkable. No enlarged lymph nodes. IMPRESSION: Interval placement of bilateral ureteral stents. There are multiple small ureteral calculi adjacent to the stent with mild bilateral hydronephrosis.
[2020-07-01] MEDS ORDERED: PIPERACILLIN-TAZOBACTAM 3.375 GM in SODIUM CHLORIDE 0.9% 100 ML IVPB STA (02:18)
--- NOTE | 2020-07-01 08:12 | P.GSCN ---
History of Present Illness Consult date: 07/01/20 History of present illness: This is a 65-year-old gentleman admitted to the hospital with a urinary tract infection with sepsis. The patient has a complicated urinary tract history. This dates to approximately a year ago or he underwent a combination of external beam radiation therapy and break he therapy for his prostate cancer. This was done at [facility]. According to the patient he has done well and his PSAs have been nondetectable post treatment. Several weeks ago the patient presented with symptoms consistent with a kidney stone. Apparently have bilateral ureteral calculi. at [facility], his urologist, place stents and did ureteroscopy laser lithotripsy. This is required multiple procedures in the interim. He has had a postoperative urine retention. He still has stents at this point in time. Upon reviewing the CAT scan it appears there are a couple of ureteral stones on the right and a couple of tiny stones in each kidney. The plan is to have a follow-up computed tomography scan and the patient and Dr. Szymanski at that point in time we'll make a decision as to the next urologic step. The patient complained of fever or frequency urgency and cloudy urine. The urinalysis looked infected in the em ergency room. He had a low-grade temperature and infected looking urine. He is also admitted to the hospital. We were asked to see the patient. There are no other urologic issues at this point in time other than the lower urinary tract symptoms, the fever and the above-mentioned urologic history. Review of Systems All systems: negative - Constitutional Denies fever, Denies weight loss - EENT Eyes: denies blurred vision Ears, nose, mouth and throat: Denies dysphagia - Cardiovascular Denies chest pain, Denies shortness of breath - Respiratory Denies cough, Denies 7 - Gastrointestinal Reports as per HPI - Genitourinary Denies dysuria, Denies hematuria - Integumentary Denies rash, Denies unusual bruising - Neurological Denies headaches, Denies syncope - Hematologic/Lymphatic Denies easy bleeding, Denies easy bruising Past Medical History Past Medical History: Cancer, Diabetes Mellitus, Hypertension, Prostate Disorder Additional Past Medical History / Comment(s): prostate CA- History of Any Multi-Drug Resistant Organisms: None Reported Past Surgical History: Orthopedic Surgery Additional Past Surgical History / Comment(s): Lithotripsy with stents Past Anesthesia/Blood Transfusion Reactions: No Reported Reaction Past Psychological History: No Psychological Hx Reported Smoking Status: Never smoker Past Alcohol Use History: Occasional Past Drug Use History: None Reported - Past Family History Mother Family Medical History: Congestive Heart Failure (CHF) Father Family Medical History: Cancer Additional Family Medical History / Comment(s): stomach cancer at age 79 Sister(s) Family Medical History: Cancer Additional Family Medical History / Comment(s): colon cancer age 63 Medications and Allergies Home Medications Medication Instructions Recorded Confirmed Type Cephalexin [Keflex] 500 mg PO TID 07/01/20 07/01/20 History Docusate [Colace] 100 mg PO BID 07/01/20 07/01/20 History Famotidine 20 mg PO BID 07/01/20 07/01/20 History Ibuprofen [Motrin Ib] 200 mg PO Q6H PRN 07/01/20 07/01/20 History Metoprolol Succinate (ER) [Toprol 50 mg PO DAILY 07/01/20 07/01/20 History Xl] Rosuvastatin [Crestor] 20 mg PO DAILY 07/01/20 07/01/20 History Tamsulosin [Flomax] 0.4 mg PO DAILY 07/01/20 07/01/20 History metFORMIN HCL ER [Glucophage Xr] 500 mg PO DAILY 07/01/20 07/01/20 History Allergies Allergy/AdvReac Type Severity Reaction Status Date / Time No Known Allergies Allergy Verified 07/01/20 00:07 Surgical - Exam Vital Signs Temp Pulse Resp BP Pulse Ox 102.0 F H 107 H 18 159/80 97 06/30/20 22:52 06/30/20 22:52 06/30/20 22:52 06/30/20 22:52 06/30/20 22:52 - General well developed, well nourished, no distress - Eyes PERRL - ENT no hearing loss - Neck no masses - Respiratory normal expansion, normal respiratory effort - Cardiovascular Rhythm: regular - Abdomen Abdomen: soft, non tender - Genitourinary Uncircumcised normal penis with no external lesions, testicles present, testicles non-tender - Integumentary no rash, no growths - Neurologic normal coordination - Musculoskeletal normal posture - Psychiatric oriented to time, oriented to person, oriented to place, speech is normal, memory intact Results - Labs 06/30/20 23:48 06/30/20 23:48 Abnormal Lab Results - Last 24 Hours (Table) 06/30/20 06/30/20 06/30/20 Range/Units 23:48 23:48 23:48 RBC 3.35 L (4.30-5.90) m/uL Hgb 10.4 L (13.0-17.5) gm/dL Hct 31.9 L (39.0-53.0) % Neutrophils # 8.2 H (1.3-7.7) k/uL Lymphocytes # 0.4 L (1.0-4.8) k/uL Sodium 132 L (137-145) mmol/L Glucose 174 H (74-99) mg/dL Phosphorus 2.0 L (2.5-4.5) mg/dL Creatine Kinase 29 L (55-170) U/L C-Reactive Protein 195.3 H (<10.0) mg/L Total Protein 5.7 L (6.3-8.2) g/dL Albumin 3.1 L (3.5-5.0) g/dL Urine Protein 2+ H (Negative) Urine Glucose (UA) Trace H (Negative) Urine Blood Moderate H (Negative) Ur Leukocyte Esterase Large H (Negative) Urine RBC 59 H (0-5) /hpf Urine WBC >182 H (0-5) /hpf Urine Mucus Occasional H (None) /hpf Diabetes panel 06/30/20 Range/Units 23:48 Sodium 132 L (137-145) mmol/L Potassium 3.7 (3.5-5.1) mmol/L Chloride 99 (98-107) mmol/L Carbon Dioxide 27 (22-30) mmol/L BUN 17 (9-20) mg/dL Creatinine 1.07 (0.66-1.25) mg/dL Glucose 174 H (74-99) mg/dL Calcium 9.1 (8.4-10.2) mg/dL AST 26 (17-59) U/L ALT 22 (4-49) U/L Alkaline Phosphatase 88 (38-126) U/L Total Protein 5.7 L (6.3-8.2) g/dL Albumin 3.1 L (3.5-5.0) g/dL Calcium panel 06/30/20 Range/Units 23:48 Calcium 9.1 (8.4-10.2) mg/dL Phosphorus 2.0 L (2.5-4.5) mg/dL Albumin 3.1 L (3.5-5.0) g/dL Pituitary panel 06/30/20 Range/Units 23:48 Sodium 132 L (137-145) mmol/L Potassium 3.7 (3.5-5.1) mmol/L Chloride 99 (98-107) mmol/L Carbon Dioxide 27 (22-30) mmol/L BUN 17 (9-20) mg/dL Creatinine 1.07 (0.66-1.25) mg/dL Glucose 174 H (74-99) mg/dL Calcium 9.1 (8.4-10.2) mg/dL Adrenal panel 06/30/20 Range/Units 23:48 Sodium 132 L (137-145) mmol/L Potassium 3.7 (3.5-5.1) mmol/L Chloride 99 (98-107) mmol/L Carbon Dioxide 27 (22-30) mmol/L BUN 17 (9-20) mg/dL Creatinine 1.07 (0.66-1.25) mg/dL Glucose 174 H (74-99) mg/dL Calcium 9.1 (8.4-10.2) mg/dL Total Bilirubin 0.4 (0.2-1.3) mg/dL AST 26 (17-59) U/L ALT 22 (4-49) U/L Alkaline Phosphatase 88 (38-126) U/L Total Protein 5.7 L (6.3-8.2) g/dL Albumin 3.1 L (3.5-5.0) g/dL - Imaging CT scan - abdomen: report reviewed, image reviewed CT scan - pelvis: report reviewed, image reviewed Assessment and Plan Assessment: Impression: Urinary tract infection with sepsis, post multiple urologic procedures. Bilateral ureteral stents for ureteral and kidney stones. Prostate cancer post radiation therapy treatment in remission. Recommendations: The patient is cultures will determine which oral antibiotics he can be placed on. Once the cultures back he should be placed on appropriate oral antibiotics and follow-up with Dr. Szymanski and at [facility] for position of his urologic procedures. Time with Patient: Greater than 30
[2020-07-01] MEDS: ENOXAPARIN 40 MG/0.4 ML SYRINGE SQ SCH (08:19)
[2020-07-01 09:45] LABS: Ferritin 636.1 ng/mL (22.0-322.0)
[2020-07-01] MEDS: PIPERACILLIN-TAZOBACTAM 3.375 GM in SODIUM CHLORIDE 0.9% 100 ML IVPB SCH ×2 (12:58→19:26)
[2020-07-01] MEDS: SODIUM CHLORIDE 0.9% 1,000 ML IV SCH (12:58)
--- NOTE | 2020-07-01 13:49 | P.HPIM ---
History of Present Illness Patient is a pleasant 58-year-old male came in with compensative fever restarted the yesterday and the UTI symptoms like a suprapubic pain and pain in the left groin area and left flank area moderate severity started about couple days ago. Patient is found to have bilateral nephrolithiasis. Patient has extensive urological history with the multiple ureteric calculi in the past patient had bilateral ureteral stents ago which there are new stones now. Patient had ureteroscopy and laser lithotripsy in the past. Patient does have history of prostate cancer is in remission since October and received radiation therapy. Patient has significantly abnormal urine with fever patient was started on antibiotic Zosyn which will be continued. Patient has multiple UTIs in the past. Review of Systems REVIEW OF SYSTEMS: CONSTITUTIONAL: No fever, no malaise, no fatigue. HEENT: No recent visual problems or hearing problems. Denied any sore throat. CARDIOVASCULAR: No chest pain, orthopnea, PND, no palpitations, no syncope. PULMONARY: No shortness of breath, no cough, no hemoptysis. GASTROINTESTINAL: No diarrhea, no nausea, no vomiting. NEUROLOGICAL: No headaches, no weakness, no numbness. HEMATOLOGICAL: Denies any bleeding or petechiae. GENITOURINARY: As mentioned in HPI MUSCULOSKELETAL/RHEUMATOLOGICAL: Denies any joint pain, swelling, or any muscle pain. ENDOCRINE: Denies any polyuria or polydipsia. The rest of the 14-point review of systems is negative. Past Medical History Past Medical History: Cancer, Diabetes Mellitus, Hypertension, Prostate Disorder Additional Past Medical History / Comment(s): prostate CA- History of Any Multi-Drug Resistant Organisms: None Reported Past Surgical History: Orthopedic Surgery Additional Past Surgical History / Comment(s): Lithotripsy with stents Past Anesthesia/Blood Transfusion Reactions: No Reported Reaction Past Psychological History: No Psychological Hx Reported Smoking Status: Never smoker Past Alcohol Use History: Occasional Past Drug Use History: None Reported - Past Family History Mother Family Medical History: Congestive Heart Failure (CHF) Father Family Medical History: Cancer Additional Family Medical History / Comment(s): stomach cancer at age 79 Sister(s) Family Medical History: Cancer Additional Family Medical History / Comment(s): colon cancer age 63 Medications and Allergies Home Medications Medication Instructions Recorded Confirmed Type Cephalexin [Keflex] 500 mg PO TID 07/01/20 07/01/20 History Docusate [Colace] 100 mg PO BID 07/01/20 07/01/20 History Famotidine 20 mg PO BID 07/01/20 07/01/20 History Ibuprofen [Motrin Ib] 200 mg PO Q6H PRN 07/01/20 07/01/20 History Metoprolol Succinate (ER) [Toprol 50 mg PO DAILY 07/01/20 07/01/20 History Xl] Rosuvastatin [Crestor] 20 mg PO DAILY 07/01/20 07/01/20 History Tamsulosin [Flomax] 0.4 mg PO DAILY 07/01/20 07/01/20 History metFORMIN HCL ER [Glucophage Xr] 500 mg PO DAILY 07/01/20 07/01/20 History Allergies Allergy/AdvReac Type Severity Reaction Status Date / Time No Known Allergies Allergy Verified 07/01/20 00:07 Physical Exam Vitals: Vital Signs Temp Pulse Pulse Resp BP BP Pulse Ox 07/01/20 08:00 16 07/01/20 07:00 98.4 F 69 18 108/70 95 07/01/20 03:43 98.3 F 91 18 146/76 96 07/01/20 03:21 98.6 F 79 19 110/71 95 07/01/20 02:00 77 19 109/62 96 07/01/20 01:00 84 19 112/65 94 L 07/01/20 00:10 99.3 F 86 19 123/71 94 L 06/30/20 22:52 102.0 F H 107 H 18 159/80 97 Intake and Output 06/30/20 07/01/20 07/01/20 22:59 06:59 14:59 Intake Total 800 Balance 800 Intake: Other 800 Other: Voiding Method Toilet Weight 108.862 kg 108.862 kg PHYSICAL EXAMINATION: GENERAL: The patient is alert and oriented x3, not in any acute distress. Well developed, well nourished. HEENT: Pupils are round and equally reacting to light. EOMI. No scleral icterus. No conjunctival pallor. Normocephalic, atraumatic. No pharyngeal erythema. No thyromegaly. CARDIOVASCULAR: S1 and S2 present. No murmurs, rubs, or gallops. PULMONARY: Chest is clear to auscultation, no wheezing or crackles. ABDOMEN: Soft, nontender, nondistended, normoactive bowel sounds. No palpable organomegaly. MUSCULOSKELETAL: No joint swelling or deformity. EXTREMITIES: No cyanosis, clubbing, or pedal edema. NEUROLOGICAL: Gross neurological examination did not reveal any focal deficits. SKIN: No rashes. Results CBC & Chem 7: 06/30/20 23:48 06/30/20 23:48 Labs: Abnormal Lab Results - Last 24 Hours (Table) 06/30/20 06/30/20 06/30/20 Range/Units 23:48 23:48 23:48 RBC 3.35 L (4.30-5.90) m/uL Hgb 10.4 L (13.0-17.5) gm/dL Hct 31.9 L (39.0-53.0) % Neutrophils # 8.2 H (1.3-7.7) k/uL Lymphocytes # 0.4 L (1.0-4.8) k/uL Sodium 132 L (137-145) mmol/L Glucose 174 H (74-99) mg/dL Phosphorus 2.0 L (2.5-4.5) mg/dL Ferritin 636.1 H (22.0-322.0) ng/mL Creatine Kinase 29 L (55-170) U/L C-Reactive Protein 195.3 H (<10.0) mg/L Total Protein 5.7 L (6.3-8.2) g/dL Albumin 3.1 L (3.5-5.0) g/dL Urine Protein 2+ H (Negative) Urine Glucose (UA) Trace H (Negative) Urine Blood Moderate H (Negative) Ur Leukocyte Esterase Large H (Negative) Urine RBC 59 H (0-5) /hpf Urine WBC >182 H (0-5) /hpf Urine Mucus Occasional H (None) /hpf Microbiology - Last 24 Hours (Table) 06/30/20 23:48 Urine Culture - Preliminary Urine,Clean Catch Thrombosis Risk Factor Assmnt - Choose All That Apply Any of the Below Risk Factors Present?: No Other Risk Factors: No Other congenital or acquired thrombophilia - If yes, enter type in comment: No Thrombosis Risk Factor Assessment Level: Very Low Risk Assessment and Plan Plan: Urinary tract infection: Complicated UTI and sepsis secondary to that: Continue Zosyn awaiting urine cultures. -Bilateral ureteral stones possible infected kidney stones. -Prostate cancer in remission Type 2 diabetes mellitus hypertension -Hypovolemic hyponatremia: Continue with IV fluids -Mild acute renal failure: IV fluids as mentioned above -Due to prophylaxis: Early ambulation
[2020-07-01] MEDS: METOPROLOL SUCCINATE (ER) 50 MG TAB.ER.24H PO SCH (17:01)
[2020-07-01] MEDS: ATORVASTATIN 40 MG TAB PO SCH (17:01)
[2020-07-01] MEDS: metFORMIN 500 MG TAB PO SCH (17:02)
[2020-07-01] MEDS: ACETAMINOPHEN TAB 500 MG TAB PO PRN (17:02)
[2020-07-01] MEDS: TAMSULOSIN 0.4 MG CAP.ER.24H PO SCH (17:12)
[2020-07-01] MEDS: DOCUSATE 100 MG CAP PO SCH (19:26)
[2020-07-01] MEDS: FAMOTIDINE 20 MG TAB PO SCH (19:26)
[2020-07-02] MEDS: SODIUM CHLORIDE 0.9% 1,000 ML IV SCH ×2 (00:14→12:07)
[2020-07-02] MEDS: PIPERACILLIN-TAZOBACTAM 3.375 GM in SODIUM CHLORIDE 0.9% 100 ML IVPB SCH ×3 (04:50→20:11)
[2020-07-02] MEDS: METOPROLOL SUCCINATE (ER) 50 MG TAB.ER.24H PO SCH (07:41)
[2020-07-02] MEDS: ATORVASTATIN 40 MG TAB PO SCH (07:42)
[2020-07-02] MEDS: TAMSULOSIN 0.4 MG CAP.ER.24H PO SCH (07:43)
[2020-07-02] MEDS: ACETAMINOPHEN TAB 500 MG TAB PO PRN ×2 (07:43→22:23)
[2020-07-02] MEDS: DOCUSATE 100 MG CAP PO SCH ×2 (07:43→20:11)
[2020-07-02] MEDS: metFORMIN 500 MG TAB PO SCH ×2 (07:44→17:36)
[2020-07-02] MEDS: ENOXAPARIN 40 MG/0.4 ML SYRINGE SQ SCH (07:46)
[2020-07-02] MEDS: FAMOTIDINE 20 MG TAB PO SCH ×2 (07:47→20:11)
[2020-07-02 13:03] LABS: African American GFR (CKD) 89 (>60 ml/min/1.73 sqM); Anion Gap 6 mmol/L; Blood Urea Nitrogen 20 mg/dL (9-20); Calcium 9.1 mg/dL (8.4-10.2); Carbon Dioxide 25 mmol/L (22-30); Chloride 106 mmol/L (98-107); Glucose 115 mg/dL (74-99); Non-African American GFR(CKD) 77 (>60 ml/min/1.73 sqM); Potassium 3.9 mmol/L (3.5-5.1); Sodium 137 mmol/L (137-145)
--- NOTE | 2020-07-02 15:08 | P.PN ---
Subjective Progress Note Date: 07/02/20 Patient is a pleasant 58-year-old male came in with compensative fever restarted the yesterday and the UTI symptoms like a suprapubic pain and pain in the left groin area and left flank area moderate severity started about couple days ago. Patient is found to have bilateral nephrolithiasis. Patient has extensive urological history with the multiple ureteric calculi in the past patient had bilateral ureteral stents ago which there are new stones now. Patient had ureteroscopy and laser lithotripsy in the past. Patient does have history of prostate cancer is in remission since October and received radiation therapy. Patient has significantly abnormal urine with fever patient was started on antibiotic Zosyn which will be continued. Patient has multiple UTIs in the past. 07/02/2020 Patient is seen and evaluated in follow-up with no acute overnight issues. Patient states that the suprapubic and left groin pain has improved and patient states that he feels "back to normal" this morning. Patient currently remains on IV antibiotics in the form of Zosyn and will continue at this time while aw aiting for urine culture finalization. Urology following and given his significant history of UTIs and kidney stones along with recent radiation therapy for prostate cancer, patient will continue on IV antibiotics and await for culture finalization. Patient will need to follow-up with his oncologist along with urology once stabilized and discharged. Repeat sodium today is improved at 137, current potassium is 3.9, creatinine is 1.03. Review of systems: Constitutional: No reports of fatigue, fever, or chills Cardiovascular: No reports of chest pain or palpitations Respiratory: No reports of shortness of breath or cough GI: No reports of nausea, vomiting, or diarrhea : No reports of dysuria or retention Neurovascular: No reports of weakness or numbness All medications have been reviewed Objective - Vital Signs Vital signs: Vital Signs Temp 97.5 F L 07/02/20 05:50 Pulse 77 07/02/20 05:50 Resp 18 07/02/20 08:00 BP 132/71 07/02/20 05:50 Pulse Ox 96 07/02/20 05:50 Intake & Output 07/01/20 07/02/20 07/02/20 18:59 06:59 18:59 Intake Total 1040 1820 Output Total 300 350 400 Balance 740 1470 -400 Intake: Intake, IV Titration 1200 Amount Sodium Chloride 0.9% 1, 1200 000 ml @ 75 mls/hr IV . [id number] [facility] Rx#:[id number] Oral 240 620 Other 800 Output: Urine 300 350 400 Other: Voiding Method Toilet Toilet Toilet Urinal Urinal Urinal # Voids 2 1 - Exam GENERAL: The patient is alert and oriented x3, not in any acute distress. Well developed, well nourished. HEENT: Pupils are round and equally reacting to light. EOMI. No scleral icterus. No conjunctival pallor. Normocephalic, atraumatic. No pharyngeal erythema. No thyromegaly. CARDIOVASCULAR: S1 and S2 present. No murmurs, rubs, or gallops. PULMONARY: Chest is clear to auscultation, no wheezing or crackles. ABDOMEN: Soft, nontender, nondistended, normoactive bowel sounds. No palpable organomegaly. MUSCULOSKELETAL: No joint swelling or deformity. EXTREMITIES: No cyanosis, clubbing, or pedal edema. NEUROLOGICAL: Gross neurological examination did not reveal any focal deficits. SKIN: No rashes. - Labs CBC & Chem 7: 06/30/20 23:48 07/02/20 12:09 Labs: Microbiology - Last 24 Hours (Table) 06/30/20 23:48 Blood Culture - Preliminary Blood No Growth after 24 hours 06/30/20 23:48 Urine Culture - Preliminary Urine,Clean Catch Assessment and Plan Assessment: -Urinary tract infection: Complicated UTI and sepsis secondary to that: Maintained on Zosyn while awaiting urine cultures to finalize. Urology following -Bilateral ureteral stones possible infected kidney stones. -Prostate cancer in remission -Type 2 diabetes mellitus -hypertension -Hypovolemic hyponatremia: Improved -Mild acute renal failure: IV fluids as mentioned above, improving. Current creatinine is 1.07 -DVT prophylaxis: Early ambulation Plan: Continue IV antibiotics in the form of IV Zosyn while awaiting for urinary cultures to finalize. Continue with gentle IV hydration and increase activity as tolerated. Encouraged fluids and rest. Anticipate discharge in 24-48 hours.
[2020-07-02 17:21] LABS: Glucose,Whole Blood 133 mg/dL (75-99)
[2020-07-02 20:17] LABS: Glucose,Whole Blood 108 mg/dL (75-99)
[2020-07-03] MEDS: SODIUM CHLORIDE 0.9% 1,000 ML IV SCH (02:35)
[2020-07-03] MEDS: PIPERACILLIN-TAZOBACTAM 3.375 GM in SODIUM CHLORIDE 0.9% 100 ML IVPB SCH ×2 (03:31→12:51)
[2020-07-03 06:40] VITALS: RESP 18
[2020-07-03 06:55] LABS: Glucose,Whole Blood 107 mg/dL (75-99)
[2020-07-03] MEDS: metFORMIN 500 MG TAB PO SCH (07:45)
[2020-07-03] MEDS: DOCUSATE 100 MG CAP PO SCH (07:46)
[2020-07-03] MEDS: METOPROLOL SUCCINATE (ER) 50 MG TAB.ER.24H PO SCH (07:46)
[2020-07-03] MEDS: FAMOTIDINE 20 MG TAB PO SCH (07:46)
[2020-07-03] MEDS: ATORVASTATIN 40 MG TAB PO SCH (07:47)
[2020-07-03] MEDS: TAMSULOSIN 0.4 MG CAP.ER.24H PO SCH (07:47)
[2020-07-03] MEDS: ENOXAPARIN 40 MG/0.4 ML SYRINGE SQ SCH (07:48)
[2020-07-03 13:05] VITALS: BP 136/75; PULSE 73; TEMP 97.5
--- NOTE | 2020-07-04 14:24 | P.DS ---
Providers Date of admission: 07/01/20 02:18 Expected date of discharge: 07/04/20 Attending physician: Juma Doll Consults: 07/01/20 02:18 Consult Physician Routine Consulting Provider: Stevie Bradshaw Consult Reason/Comments: uti,stones,stenstBL Do you want consulting provider notified?: Yes Primary care physician: Jesica Torres MD Hospital Course: Final diagnosis -Urinary tract infection: Complicated UTI and sepsis secondary to that, cultures showing pseudomonas aeruginosa -Bilateral ureteral stones possible infected kidney stones. -Prostate cancer in remission -Type 2 diabetes mellitus -hypertension -Hypovolemic hyponatremia: Improved -Mild acute renal failure -DVT prophylaxis Discharge disposition Patient is being discharged in a stable condition with guarded prognosis to home. Patient will follow-up with his pcp in the outpatient setting upon discharge. Patient will continue on Cipro 500 mg twice daily for one week. Total time taken is greater than 35 minutes. History of present illness This is a 65-year-old male who was recently admitted with UTI symptoms like a suprapubic pain and pain in the left groin area and left flank area moderate sev erity started about couple days ago. Patient is found to have bilateral nephrolithiasis. Patient has extensive urological history with the multiple ureteric calculi in the past patient had bilateral ureteral stents ago which there are new stones now. Patient had ureteroscopy and laser lithotripsy in the past. Patient does have history of prostate cancer is in remission since October and received radiation therapy. Patient has significantly abnormal urine with fever patient was started on antibiotic Zosyn which will be continued. Patient has multiple UTIs in the past. Urology evaluated the patient and awaitng cultures to finalize. Cultures grew pseudomonas aeruginosa and will continue on Cipro 500 mg BID for 7 days. Patient will follow up with his urologist and oncologist in [place] upon discharge. Currently no reports of chest pain, shortness of breath, or palpitations. Patient is afebrile. No reports of nausea or vomiting and patient is tolerating diet. Patient will be going home today. On exam vital signs are stable. Temp is 97.5 F, pulse is 73, respirations are 18, blood pressure is 136/75, oxygen saturation is 95 % on room air. Cardio S1, S2 are muffled. Respiratory system shows diminished breath sounds at the bases with no wheezing or rhonchi noted. Abdomen is soft and nontender. Nervous system shows no focal deficits. Please refer to medication reconciliation sheet for a list of medications. Patient Condition at Discharge: Stable Plan - Discharge Summary Discharge Rx Participant: No New Discharge Prescriptions: New Ciprofloxacin HCl [Cipro] 500 mg PO BID 7 Days #14 tab Continue Docusate [Colace] 100 mg PO BID Tamsulosin [Flomax] 0.4 mg PO DAILY Rosuvastatin [Crestor] 20 mg PO DAILY Metoprolol Succinate (ER) [Toprol XL] 50 mg PO DAILY Ibuprofen [Motrin Ib] 200 mg PO Q6H PRN PRN Reason: Pain Famotidine 20 mg PO BID metFORMIN HCL ER [Glucophage Xr] 500 mg PO DAILY Discontinued Cephalexin [Keflex] 500 mg PO TID Discharge Medication List Docusate [Colace] 100 mg PO BID 07/01/20 [History] Famotidine 20 mg PO BID 07/01/20 [History] Ibuprofen [Motrin Ib] 200 mg PO Q6H PRN 07/01/20 [History] Metoprolol Succinate (ER) [Toprol XL] 50 mg PO DAILY 07/01/20 [History] Rosuvastatin [Crestor] 20 mg PO DAILY 07/01/20 [History] Tamsulosin [Flomax] 0.4 mg PO DAILY 07/01/20 [History] metFORMIN HCL ER [Glucophage Xr] 500 mg PO DAILY 07/01/20 [History] Ciprofloxacin HCl [Cipro] 500 mg PO BID 7 Days #14 tab 07/03/20 [Rx] Follow up Appointment(s)/Referral(s): Jesica Torres MD [Primary Care Provider] - 1-2 days Patient Instructions/Handouts: Kidney Stones (DC), Fever in Adults (ED) Activity/Diet/Wound Care/Special Instructions: activity limited until follow up follow up with primary care provider upon discharge follow up with urologist continue with antibiotics until finished encourage fluids Discharge Disposition: HOME SELF-CARE
== END 2020-07-03 13:55 | disposition home or self-care (01) | DRG 872 ==
LOC: EC 22:49 → 5NMEDONC 07-01 02:18
PROVIDERS: ADMIT Hospitalist; ATTEND Hospitalist
DX: A41.52 Sepsis due to Pseudomonas (principal); N13.6 Pyonephrosis; N20.2 Calculus of kidney with calculus of ureter; E87.1 Hypo-osmolality and hyponatremia; N17.9 Acute kidney failure, unspecified; E11.9 Type 2 diabetes mellitus without complications; I10 Essential (primary) hypertension; E86.1 Hypovolemia; Z79.84 Long term (current) use of oral hypoglycemic drugs; Z79.899 Other long term (current) drug therapy; Z87.442 Personal history of urinary calculi; Z87.440 Personal history of urinary (tract) infections; Z85.46 Personal history of malignant neoplasm of prostate; Z92.3 Personal history of irradiation; Z87.39 Personal history of other diseases of the musculoskeletal system and connective tissue; Z98.890 Other specified postprocedural states; Z82.49 Family history of ischemic heart disease and other diseases of the circulatory system; Z80.0 Family history of malignant neoplasm of digestive organs
CPT/HCPCS: 36415; 71045; 74176; 80048; 80053; 81001; 82550; 82728; 83605; 83615; 83735; 84100; 84484; 85025; 86140; 87040; 87077; 87086; 87186; 93005; 96365; 96366; 96375; 99285

== ENCOUNTER 2020-07-20 18:16 | Inpatient (IN) | payer BC ==
[2020-07-20] MEDS ORDERED: PIPERACILLIN-TAZOBACTAM 3.375 GM in SODIUM CHLORIDE 0.9% 100 ML IVPB STA (19:04)
[2020-07-20 19:28] LABS: Basophils % (A) 1 %; Eosinophils # (A) 0.3 k/uL (0-0.7); Eosinophils % (A) 4 %; HCT 35.1 % (39.0-53.0); HGB 11.8 gm/dL (13.0-17.5); Lymphocytes # (A) 0.6 k/uL (1.0-4.8); Lymphocytes % (A) 8 %; MCH 31.6 pg (25.0-35.0); MCHC 33.5 g/dL (31.0-37.0); MCV 94.1 fL (80.0-100.0); Mean Platelet Volume 7.4; Monocytes # (A) 0.6 k/uL (0-1.0); Monocytes % (A) 7 %; Neutrophils # (A) 6.1 k/uL (1.3-7.7); Neutrophils % (A) 79 %; Platelet Count 221 k/uL (150-450); RBC 3.73 m/uL (4.30-5.90); RDW 13.7 % (11.5-15.5); WBC 7.8 k/uL (3.8-10.6)
[2020-07-20 20:02] LABS: ALT 26 U/L (4-49); AST 24 U/L (17-59); African American GFR (CKD) >90 (>60 ml/min/1.73 sqM); Albumin 3.8 g/dL (3.5-5.0); Alkaline Phosphatase 98 U/L (38-126); Anion Gap 6 mmol/L; Blood Urea Nitrogen 13 mg/dL (9-20); Calcium 9.7 mg/dL (8.4-10.2); Carbon Dioxide 25 mmol/L (22-30); Chloride 104 mmol/L (98-107); Glucose 124 mg/dL (74-99); Non-African American GFR(CKD) 80 (>60 ml/min/1.73 sqM); Potassium 4.2 mmol/L (3.5-5.1); Sodium 135 mmol/L (137-145); Total Bilirubin 0.3 mg/dL (0.2-1.3); Total Protein 6.7 g/dL (6.3-8.2)
[2020-07-20 20:10] LABS: Appearance,Urine Turbid (Clear); Bacteria,Urine Rare /hpf; Bilirubin,Urine Negative (Negative); Blood,Urine Moderate (Negative); Color,Urine Yellow; Glucose,Urine (UA) Negative (Negative); Ketones,Urine Negative (Negative); Leukocyte Esterase,Urine Large (Negative); Nitrite,Urine Positive (Negative); Protein,Urine 1+ (Negative); RBC,Urine 74 /hpf (0-5); Specific Gravity,Urine 1.015 (1.001-1.035); Urobilinogen,Urine <2.0 mg/dL (<2.0); WBC,Urine >182 /hpf (0-5)
--- NOTE | 2020-07-20 20:12 | US ---
EXAMINATION TYPE: US renals and bladder DATE OF EXAM: 07/20/2020 COMPARISON: CT 2019 CLINICAL HISTORY: stents, fever. EXAM MEASUREMENTS: Right Kidney: 10.0 x 5.9 x 5.5 cm Left Kidney: 11.5 x 6.0 x 4.9 cm Right Kidney: mild hydronephrosis, 0.5cm echogenic focus inferior pole Left Kidney: Mild hydronephrosis Bladder: not fully distended, appears wnl as seen Bilateral Jets seen: no IMPRESSION: Bilateral mild hydronephrosis with small right renal calculus seen.
--- NOTE | 2020-07-20 20:47 | ED ---
Male Urogenital HPI - General Chief complaint: Urogenital Stated complaint: Fever,Abd Pain Time Seen by Provider: 07/20/20 18:32 Source: patient Mode of arrival: ambulatory Limitations: no limitations - History of Present Illness Initial comments: 65yo male presenting today for chief complaint of suprapubic tenderness, fevers chills general malaise. Patient states that he has bilateral stents and states that this is not last 6 weeks he's been struggling with kidney stones as well as kidney infection. Patient states that he recently was discontinued of ciprofloxacin after having a septic stone. Patient states he had his stents replaced and was exposed to have them removed Wednesday. Patient states he began to develop symptoms of a fever today he denies a cough congestion but states he had some suprapubic tenderness dysuria. Patient states that he was concerned he had another septic stone present to the nearest hospital. Patient states he no rmally has urologic care at [facility] by Dr. Fisher. Patient has no additional complaints. Denies chest pain, SOB, RLQ pain, upper abdominal pain, lesions, rashes, - Related Data Home Medications Medication Instructions Recorded Confirmed Docusate [Colace] 100 mg PO BID 07/01/20 07/01/20 Famotidine 20 mg PO BID 07/01/20 07/01/20 Ibuprofen [Motrin Ib] 200 mg PO Q6H PRN 07/01/20 07/01/20 Metoprolol Succinate (ER) [Toprol 50 mg PO DAILY 07/01/20 07/01/20 XL] Rosuvastatin [Crestor] 20 mg PO DAILY 07/01/20 07/01/20 Tamsulosin [Flomax] 0.4 mg PO DAILY 07/01/20 07/01/20 metFORMIN HCL ER [Glucophage Xr] 500 mg PO DAILY 07/01/20 07/01/20 Previous Rx's Medication Instructions Recorded Ciprofloxacin HCl [Cipro] 500 mg PO BID 7 Days #14 tab 07/03/20 Allergies Allergy/AdvReac Type Severity Reaction Status Date / Time No Known Allergies Allergy Verified 07/20/20 18:27 Review of Systems ROS Statement: Those systems with pertinent positive or pertinent negative responses have been documented in the HPI. ROS Other: All systems not noted in ROS Statement are negative. Past Medical History Past Medical History: Cancer, Diabetes Mellitus, Hypertension, Prostate Disorder Additional Past Medical History / Comment(s): prostate CA- History of Any Multi-Drug Resistant Organisms: None Reported Past Surgical History: Orthopedic Surgery Additional Past Surgical History / Comment(s): Lithotripsy with stents Past Anesthesia/Blood Transfusion Reactions: No Reported Reaction Past Psychological History: No Psychological Hx Reported Smoking Status: Never smoker Past Alcohol Use History: Occasional Past Drug Use History: None Reported - Past Family History Mother Family Medical History: Congestive Heart Failure (CHF) Father Family Medical History: Cancer Additional Family Medical History / Comment(s): stomach cancer at age 79 Sister(s) Family Medical History: Cancer Additional Family Medical History / Comment(s): colon cancer age 63 General Exam - General Exam Comments Initial Comments: General: The patient is awake and alert, in no distress Eye: +3 mm pupils are equal, round and reactive to light, extra-ocular movements are intact. No nystagmus. There is normal conjunctiva bilaterally. No signs of icterus. Ears, nose, mouth and throat: There are moist mucous membranes and no oral lesions. Neck: The neck is supple, there is no tenderness or JVD. Cardiovascular: There is a regular rate and rhythm. No murmur, rub or gallop is appreciated. Respiratory: Lungs are clear to auscultation, respirations are non-labored, breath sounds are equal. No wheezes, stridor, rales, or rhonchi. Gastrointestinal: Soft, non-distended, some suprapubic tenderness without masses or organomegaly noted. There is no rebound or guarding present. No CVA tenderness. Musculoskeletal: Normal ROM, no tenderness. Strength 5/5. Sensation intact. Radial pulses equal bilaterally 2+. Neurological: A&O x 3. CN II-XII intact grossly, There are no obvious motor or sensory deficits. Coordination appears grossly intact. Speech is normal. Skin: Skin is warm and dry and no rashes or lesions are noted. Psychiatric: Cooperative, appropriate mood & affect, normal judgment. Limitations: no limitations Course Vital Signs 07/20/20 07/20/20 18:21 20:56 Temperature 100.0 F H 100.4 F H Pulse Rate 100 82 Respiratory 18 16 Rate Blood Pressure 149/97 122/71 O2 Sat by Pulse 98 96 Oximetry Medical Decision Making - Medical Decision Making Labs no critical findings. Cr within acceptable limits.US mild hydronephrosis. Small right sides stone. Previous culture reviewed, that ability to Zosyn. Zosyn was initiated in the emergency department. Pt urological team consulted spoke with Primo Archer who stated that he did not see need for transfer for continuity of care and felt pt could be admitted to this facility with abx to medicine. pt prefers [facility] if available. Patient case discussed at length with Dr. Soares who spoke with Dr. Reese who accepted admission, recommend abx, NPO after midnight and urine culture. Patient admitted appear nontoxic. Covid (-). - Lab Data Result diagrams: 07/20/20 19:10 07/20/20 19:10 Lab Results 07/20/20 07/20/20 07/20/20 Range/Units 19:10 19:10 19:10 WBC 7.8 (3.8-10.6) k/uL RBC 3.73 L (4.30-5.90) m/uL Hgb 11.8 L (13.0-17.5) gm/dL Hct 35.1 L (39.0-53.0) % MCV 94.1 (80.0-100.0) fL MCH 31.6 (25.0-35.0) pg MCHC 33.5 (31.0-37.0) g/dL RDW 13.7 (11.5-15.5) % Plt Count 221 (150-450) k/uL MPV 7.4 Neutrophils % 79 % Lymphocytes % 8 % Monocytes % 7 % Eosinophils % 4 % Basophils % 1 % Neutrophils # 6.1 (1.3-7.7) k/uL Lymphocytes # 0.6 L (1.0-4.8) k/uL Monocytes # 0.6 (0-1.0) k/uL Eosinophils # 0.3 (0-0.7) k/uL Basophils # 0.0 (0-0.2) k/uL Sodium 135 L (137-145) mmol/L Potassium 4.2 (3.5-5.1) mmol/L Chloride 104 (98-107) mmol/L Carbon Dioxide 25 (22-30) mmol/L Anion Gap 6 mmol/L BUN 13 (9-20) mg/dL Creatinine 1.00 (0.66-1.25) mg/dL Est GFR (CKD-EPI)AfAm >90 (>60 ml/min/1.73 sqM) Est GFR (CKD-EPI)NonAf 80 (>60 ml/min/1.73 sqM) Glucose 124 H (74-99) mg/dL Plasma Lactic Acid Sridhar 1.5 (0.7-2.0) mmol/L Calcium 9.7 (8.4-10.2) mg/dL Total Bilirubin 0.3 (0.2-1.3) mg/dL AST 24 (17-59) U/L ALT 26 (4-49) U/L Alkaline Phosphatase 98 (38-126) U/L Total Protein 6.7 (6.3-8.2) g/dL Albumin 3.8 (3.5-5.0) g/dL Urine Color Urine Appearance (Clear) Urine pH (5.0-8.0) Ur Specific Webster (1.001-1.035) Urine Protein (Negative) Urine Glucose (UA) (Negative) Urine Ketones (Negative) Urine Blood (Negative) Urine Nitrite (Negative) Urine Bilirubin (Negative) Urine Urobilinogen (<2.0) mg/dL Ur Leukocyte Esterase (Negative) Urine RBC (0-5) /hpf Urine WBC (0-5) /hpf Urine WBC Clumps (None) /hpf Urine Bacteria (None) /hpf Coronavirus (PCR) (Not Detectd) 07/20/20 07/20/20 Range/Units 19:21 19:21 WBC (3.8-10.6) k/uL RBC (4.30-5.90) m/uL Hgb (13.0-17.5) gm/dL Hct (39.0-53.0) % MCV (80.0-100.0) fL MCH (25.0-35.0) pg MCHC (31.0-37.0) g/dL RDW (11.5-15.5) % Plt Count (150-450) k/uL MPV Neutrophils % % Lymphocytes % % Monocytes % % Eosinophils % % Basophils % % Neutrophils # (1.3-7.7) k/uL Lymphocytes # (1.0-4.8) k/uL Monocytes # (0-1.0) k/uL Eosinophils # (0-0.7) k/uL Basophils # (0-0.2) k/uL Sodium (137-145) mmol/L Potassium (3.5-5.1) mmol/L Chloride (98-107) mmol/L Carbon Dioxide (22-30) mmol/L Anion Gap mmol/L BUN (9-20) mg/dL Creatinine (0.66-1.25) mg/dL Est GFR (CKD-EPI)AfAm (>60 ml/min/1.73 sqM) Est GFR (CKD-EPI)NonAf (>60 ml/min/1.73 sqM) Glucose (74-99) mg/dL Plasma Lactic Acid Sridhar (0.7-2.0) mmol/L Calcium (8.4-10.2) mg/dL Total Bilirubin (0.2-1.3) mg/dL AST (17-59) U/L ALT (4-49) U/L Alkaline Phosphatase (38-126) U/L Total Protein (6.3-8.2) g/dL Albumin (3.5-5.0) g/dL Urine Color Yellow Urine Appearance Turbid (Clear) Urine pH 7.0 (5.0-8.0) Ur Specific Webster 1.015 (1.001-1.035) Urine Protein 1+ H (Negative) Urine Glucose (UA) Negative (Negative) Urine Ketones Negative (Negative) Urine Blood Moderate H (Negative) Urine Nitrite Positive (Negative) Urine Bilirubin Negative (Negative) Urine Urobilinogen <2.0 (<2.0) mg/dL Ur Leukocyte Esterase Large H (Negative) Urine RBC 74 H (0-5) /hpf Urine WBC >182 H (0-5) /hpf Urine WBC Clumps Moderate H (None) /hpf Urine Bacteria Rare H (None) /hpf Coronavirus (PCR) Not Detected (Not Detectd) Disposition Clinical Impression: UTI (urinary tract infection), Hydronephrosis, Hx of renal calculi Disposition: ADMITTED IP TO THIS HOSP Condition: Stable Is patient prescribed a controlled substance at d/c from ED?: No Referrals: Jesica Torres MD [Primary Care Provider] - 1-2 days Time of Disposition: 21:05 Decision to Admit Reason: Admit from EC Decision Date: 07/20/20 Decision Time: 21:05
[2020-07-20] MEDS ORDERED: ACETAMINOPHEN TAB 325 MG TAB PO STA (20:57)
[2020-07-20] MEDS ORDERED: NALOXONE 0.4 MG/ML 1 ML VIAL IV PRN (21:06)
[2020-07-21] MEDS ORDERED: ACETAMINOPHEN TAB 325 MG TAB PO PRN (01:00)
--- NOTE | 2020-07-21 01:04 | P.HPIM ---
History of Present Illness H&P Date: 07/20/20 Chief Complaint: fever, back pressure 65 year old male with DM, renal calculi and recurrent UTI patient comes in with fever today, and increase discomfort in his lower back. he reports recent diagnosis of Prostate cancer earlier this year, s/p radiation . about 6 weeks ago he was diagnosed with bilateral renal calculi progressed to have Acute UTI with pyelonephritis about 2 weeks ago where he was treated with IV antibiotics, and discharge with PO cipro that he finished about 1 week ago. since then he has been monitoring his temp , he has bilateral uretral stents s cheduled for removal on Wednesday 2 days from now. however, today in the afternoon, he found that he has fever, associated with increased pressure sensation in his lower back, and decrease urine output, he denies any hematuria, dysuria or nocturia denies nay URI symptoms denies any GI symptoms or bleeding , denies any leg swelling or tenderness. he comes in to the ED for evaluation, US showed mild bilateral hydroureters, and renal calculi, no leukocytosis no ANGY. case discussed with urology who recommended admission and IV ANtibiotics Review of Systems Pertinent positives as noted in HPI. All other systems were reviewed and are negative Past Medical History Past Medical History: Cancer, Diabetes Mellitus, Hypertension, Prostate Disorder Additional Past Medical History / Comment(s): prostate CA- History of Any Multi-Drug Resistant Organisms: None Reported Past Surgical History: Orthopedic Surgery Additional Past Surgical History / Comment(s): Lithotripsy with stents Past Anesthesia/Blood Transfusion Reactions: No Reported Reaction Past Psychological History: No Psychological Hx Reported Smoking Status: Never smoker Past Alcohol Use History: Occasional Past Drug Use History: None Reported - Past Family History Mother Family Medical History: Congestive Heart Failure (CHF) Father Family Medical History: Cancer Additional Family Medical History / Comment(s): stomach cancer at age 79 Sister(s) Family Medical History: Cancer Additional Family Medical History / Comment(s): colon cancer age 63 Medications and Allergies Home Medications Medication Instructions Recorded Confirmed Type Famotidine 20 mg PO BID 07/01/20 07/20/20 History Metoprolol Succinate (ER) [Toprol 50 mg PO HS 07/01/20 07/20/20 History XL] Rosuvastatin [Crestor] 20 mg PO HS 07/01/20 07/20/20 History Tamsulosin [Flomax] 0.4 mg PO HS 07/01/20 07/20/20 History metFORMIN HCL ER [Glucophage Xr] 500 mg PO DAILY 07/01/20 07/20/20 History Acetaminophen Tab [Tylenol] 1,500 mg PO ONCE PRN 07/20/20 07/20/20 History Mirabegron [Myrbetriq] 25 mg PO DIRECTED 07/20/20 07/20/20 History Allergies Allergy/AdvReac Type Severity Reaction Status Date / Time No Known Allergies Allergy Verified 07/20/20 22:10 Physical Exam Vitals: Vital Signs Temp Pulse Pulse Resp BP BP Pulse Ox 07/20/20 23:15 98.5 F 68 16 120/75 94 L 07/20/20 22:48 99.5 F 96 16 112/64 95 07/20/20 20:56 100.4 F H 82 16 122/71 96 07/20/20 18:21 100.0 F H 100 18 149/97 98 Intake and Output 07/20/20 07/20/20 07/21/20 14:59 22:59 06:59 Other: # Voids 1 Weight 108.862 kg Constitutional: No acute distress, conversant, pleasant Eyes: Anicteric sclerae, moist conjunctiva, Pupils equal round reactive to light ENMT: NC/AT Oropharynx clear, no erythema, no exudates Neck: Supple, FROM, no masses, or JVD No carotid bruits No thyromegaly Lungs: Clear to auscultation Clear to percussion Normal respiratory effort, no accessory muscle use Cardiovascular: Heart regular in rate and rhythm, No murmurs, gallops, or rubs No peripheral edema Abdominal: Soft Nontender, no guarding, rebound or rigidity discomfort to percussion over left costovertebral angle Abdomen moving with respiration Normoactive bowel sounds No hepatomegaly, No splenomegaly No palpable mass No abdominal wall hernia noted Skin: Normal temperature, tone, texture, turgor No induration No subcutaneous nodules No rash, lesions No ulcers Extremities: No digital cyanosis No clubbing Pedal pulses intact and symmetrical Radial pulses intact and symmetrical No calf tenderness Psychiatric: Alert and oriented to person, place and time Appropriate affect fair judgement Neuro Muscles Strength 5/5 in all 4 extremities Sensation to light touch grossly present throughout Cranial nerves II-XII grossly intact No focal sensory deficits Lymphatics: no palpable cervical or supraclavicular , or inguinal lymph nodes Results CBC & Chem 7: 07/20/20 19:10 07/20/20 19:10 Labs: Abnormal Lab Results - Last 24 Hours (Table) 07/20/20 07/20/20 07/20/20 Range/Units 19:10 19:10 19:21 RBC 3.73 L (4.30-5.90) m/uL Hgb 11.8 L (13.0-17.5) gm/dL Hct 35.1 L (39.0-53.0) % Lymphocytes # 0.6 L (1.0-4.8) k/uL Sodium 135 L (137-145) mmol/L Glucose 124 H (74-99) mg/dL Urine Protein 1+ H (Negative) Urine Blood Moderate H (Negative) Ur Leukocyte Esterase Large H (Negative) Urine RBC 74 H (0-5) /hpf Urine WBC >182 H (0-5) /hpf Urine WBC Clumps Moderate H (None) /hpf Urine Bacteria Rare H (None) /hpf Microbiology - Last 24 Hours (Table) 07/20/20 19:21 Urine Culture - Preliminary Urine,Voided Thrombosis Risk Factor Assmnt - Choose All That Apply Each Factor Represents 1 point: Obesity (BMI >25) Each Risk Factor Represents 2 Points: Age 61-74 years Thrombosis Risk Factor Assessment Total Risk Factor Score: 3 Thrombosis Risk Factor Assessment Level: Moderate Risk Assessment and Plan Assessment: recurrent UTI, complicated UTI in male with bilateral uretral stents and renal calculi follow up culture uro consult zosyn per most recent urine culture IVF hydration tylenol for fever pain control with norco chronic conditions DM hypertension BPH resume home meds Preformed a thorough record review from recent hospitalization for UTI and renal calculi at [facility] discharge with PO antibiotics that he finished about 1 week ago CODE STATUS:full code DVT prophylaxis: heparin sc tid Discussed with: Patient, ER, RN Anticipated length of stay > than [address]: home A total of 75 minutes was spent on the care of this complex patient more than 50% of the time was spent in counseling and care coordination.
[2020-07-21] MEDS ORDERED: HYDROcodone/APAP 5-325MG 1 EACH TAB PO PRN (01:07)
[2020-07-21] MEDS: SODIUM CHLORIDE 0.9% 1,000 ML IV SCH ×4 (02:00→21:11)
[2020-07-21] MEDS: PIPERACILLIN-TAZOBACTAM 3.375 GM in SODIUM CHLORIDE 0.9% 100 ML IVPB SCH ×3 (02:09→19:29)
[2020-07-21] MEDS: NON FORMULARY DRUG (Mirabegron [Myrbetriq] 25 MG Tab.Er.24h) PO SCH (02:13)
[2020-07-21 07:49] LABS: Glucose,Whole Blood 124 mg/dL (75-99)
[2020-07-21] MEDS: INSULIN ASPART (NovoLOG) 100 UNIT/ML VIAL SQ SCH ×3 (07:54→18:24)
[2020-07-21] MEDS: HEPARIN SODIUM,PORCINE 5,000 UNIT/ML 1 ML VIAL SQ SCH ×2 (08:02→17:14)
--- NOTE | 2020-07-21 11:35 | P.GSCN ---
History of Present Illness Consult date: 07/21/20 Reason for Consult: UTI Requesting physician: Manuel Stevens History of present illness: The patient is a 65-year-old white male who passed a kidney stone 35 years ago. He was diagnosed with prostate cancer early this year. He was treated with combination radiation therapy and androgen deprivation therapy. He completed radiation therapy in November, and his most recent PSA level was undetectable. He recently developed renal colic. A computed tomography scan on 05/12/2020 showed evidence of right hydronephrosis due to a right UPJ calculus. He had bilateral renal calculi, and underwent bilateral ureteroscopy with holmium laser lithotripsy by Dr. Noe Fisher, his urologist. His ureteral stents remain in place. He was hospitalized in late June for treatment of a pseudomonas UTI. He was scheduled to undergo removal of his ureteral stents tomorrow. However, he was admitted yesterday evening after presenting to the emergency room with fever and chills. Review of Systems - Constitutional Reports chills, Reports fever - Gastrointestinal Denies nausea, Denies vomiting - Genitourinary Reports dysuria, Denies hematuria Past Medical History Past Medical History: Cancer, Diabetes Mellitus, Hypertension, Prostate Disorder Additional Past Medical History / Comment(s): prostate CA- History of Any Multi-Drug Resistant Organisms: None Reported Past Surgical History: Orthopedic Surgery Additional Past Surgical History / Comment(s): Lithotripsy with stents Past Anesthesia/Blood Transfusion Reactions: No Reported Reaction Past Psychological History: No Psychological Hx Reported Smoking Status: Never smoker Past Alcohol Use History: Occasional Past Drug Use History: None Reported - Past Family History Mother Family Medical History: Congestive Heart Failure (CHF) Father Family Medical History: Cancer Additional Family Medical History / Comment(s): stomach cancer at age 79 Sister(s) Family Medical History: Cancer Additional Family Medical History / Comment(s): colon cancer age 63 Medications and Allergies Home Medications Medication Instructions Recorded Confirmed Type Famotidine 20 mg PO BID 07/01/20 07/20/20 History Metoprolol Succinate (ER) [Toprol 50 mg PO HS 07/01/20 07/20/20 History XL] Rosuvastatin [Crestor] 20 mg PO HS 07/01/20 07/20/20 History Tamsulosin [Flomax] 0.4 mg PO HS 07/01/20 07/20/20 History metFORMIN HCL ER [Glucophage Xr] 500 mg PO DAILY 07/01/20 07/20/20 History Acetaminophen Tab [Tylenol] 1,500 mg PO ONCE PRN 07/20/20 07/20/20 History Mirabegron [Myrbetriq] 25 mg PO DIRECTED 07/20/20 07/20/20 History Allergies Allergy/AdvReac Type Severity Reaction Status Date / Time No Known Allergies Allergy Verified 07/20/20 22:10 Surgical - Exam Vital Signs Temp Pulse Resp BP Pulse Ox 100.0 F H 100 18 149/97 98 07/20/20 18:21 07/20/20 18:21 07/20/20 18:21 07/20/20 18:21 07/20/20 18:21 - General well developed, well nourished, no distress - Respiratory normal respiratory effort - Abdomen Abdomen: soft, non tender, no guarding, no rigid, no rebound - Genitourinary normal penis with no external lesions, testicles non-tender - Psychiatric oriented to time, oriented to person, oriented to place, speech is normal, memory intact Results - Labs 07/20/20 19:10 07/20/20 19:10 Abnormal Lab Results - Last 24 Hours (Table) 07/20/20 07/20/20 07/20/20 Range/Units 19:10 19:10 19:21 RBC 3.73 L (4.30-5.90) m/uL Hgb 11.8 L (13.0-17.5) gm/dL Hct 35.1 L (39.0-53.0) % Lymphocytes # 0.6 L (1.0-4.8) k/uL Sodium 135 L (137-145) mmol/L Glucose 124 H (74-99) mg/dL POC Glucose (mg/dL) (75-99) mg/dL Urine Protein 1+ H (Negative) Urine Blood Moderate H (Negative) Ur Leukocyte Esterase Large H (Negative) Urine RBC 74 H (0-5) /hpf Urine WBC >182 H (0-5) /hpf Urine WBC Clumps Moderate H (None) /hpf Urine Bacteria Rare H (None) /hpf 07/21/20 Range/Units 07:29 RBC (4.30-5.90) m/uL Hgb (13.0-17.5) gm/dL Hct (39.0-53.0) % Lymphocytes # (1.0-4.8) k/uL Sodium (137-145) mmol/L Glucose (74-99) mg/dL POC Glucose (mg/dL) 124 H (75-99) mg/dL Urine Protein (Negative) Urine Blood (Negative) Ur Leukocyte Esterase (Negative) Urine RBC (0-5) /hpf Urine WBC (0-5) /hpf Urine WBC Clumps (None) /hpf Urine Bacteria (None) /hpf Microbiology - Last 24 Hours (Table) 07/20/20 19:21 Urine Culture - Preliminary Urine,Voided Diabetes panel 07/20/20 Range/Units 19:10 Sodium 135 L (137-145) mmol/L Potassium 4.2 (3.5-5.1) mmol/L Chloride 104 (98-107) mmol/L Carbon Dioxide 25 (22-30) mmol/L BUN 13 (9-20) mg/dL Creatinine 1.00 (0.66-1.25) mg/dL Glucose 124 H (74-99) mg/dL Calcium 9.7 (8.4-10.2) mg/dL AST 24 (17-59) U/L ALT 26 (4-49) U/L Alkaline Phosphatase 98 (38-126) U/L Total Protein 6.7 (6.3-8.2) g/dL Albumin 3.8 (3.5-5.0) g/dL Calcium panel 07/20/20 Range/Units 19:10 Calcium 9.7 (8.4-10.2) mg/dL Albumin 3.8 (3.5-5.0) g/dL Pituitary panel 07/20/20 Range/Units 19:10 Sodium 135 L (137-145) mmol/L Potassium 4.2 (3.5-5.1) mmol/L Chloride 104 (98-107) mmol/L Carbon Dioxide 25 (22-30) mmol/L BUN 13 (9-20) mg/dL Creatinine 1.00 (0.66-1.25) mg/dL Glucose 124 H (74-99) mg/dL Calcium 9.7 (8.4-10.2) mg/dL Adrenal panel 07/20/20 Range/Units 19:10 Sodium 135 L (137-145) mmol/L Potassium 4.2 (3.5-5.1) mmol/L Chloride 104 (98-107) mmol/L Carbon Dioxide 25 (22-30) mmol/L BUN 13 (9-20) mg/dL Creatinine 1.00 (0.66-1.25) mg/dL Glucose 124 H (74-99) mg/dL Calcium 9.7 (8.4-10.2) mg/dL Total Bilirubin 0.3 (0.2-1.3) mg/dL AST 24 (17-59) U/L ALT 26 (4-49) U/L Alkaline Phosphatase 98 (38-126) U/L Total Protein 6.7 (6.3-8.2) g/dL Albumin 3.8 (3.5-5.0) g/dL - Imaging CT scan - abdomen: report reviewed, image reviewed US - kidney/bladder: report reviewed Assessment and Plan (1) UTI (urinary tract infection) Current Visit: Yes Status: Acute Code(s): N39.0 - URINARY TRACT INFECTION, SITE NOT SPECIFIED SNOMED Code(s): 34390990 (2) Hydronephrosis Current Visit: Yes Status: Acute Code(s): N13.30 - UNSPECIFIED HYDRONEPHROSIS SNOMED Code(s): 36460731 Plan: Urinalysis is consistent with a UTI. The patient is currently receiving Zosyn, which the Pseudomonas was sensitive to. A urine culture is pending. Renal ultrasound shows bilateral mild hydronephrosis, as did the CT scan performed on 07/01/2020. The right hydronephrosis was improved compared to the initial CT scan on May 12. The CT scan performed on 07/01/2020 suggested the presence of bilateral proximal ureteral calculus fragments. It would be my recommendation that he continue to receive IV antibiotics until the urine culture result is completed. He may then be discharged home on appropriate oral antibiotics. He was advised to contact Dr. Fisher's office and reschedule re moval of the ureteral stents.
[2020-07-21 11:39] LABS: Glucose,Whole Blood 109 mg/dL (75-99)
[2020-07-21] MEDS: FAMOTIDINE 20 MG TAB PO SCH ×2 (12:11→21:11)
--- NOTE | 2020-07-21 14:44 | P.PN ---
Subjective Progress Note Date: 07/21/20 Principal diagnosis: dysuria Patient is a 65-year-old male with a history of prior renal calculi currently with stents in place secondary to nephrolithiasis and hydronephrosis with recent urinary tract infection secondary to pseudomonas approximately 2 weeks ago, diabetes mellitus, and prior prostate cancer who presented to the ER with complaints of fever as well as burning with urination. In the ER he underwent next extensive workup. He was found have mild hydronephrosis which was improved from prior CT scan. He was started on IV antibiotics and admitted. After review of his urine culture antibiotics were transitioned to Zosyn with recent pseudomonal infection. Urology was consulted and recommended IV antibiotics with continuation of oral antibiotics until stent can be removed by his urologist out of [place]. Patient seen and examined at bedside. All questions answered. He continues to have some pressure when urinating in his bladder area, some flank pain, no nausea, no vomiting, no diarrhea, no chest pain, no shortness of breath. General: non toxic, no distress, appears at stated age Derm: warm, dry Head: atraumatic, normocephalic, symmetric Eyes: EOMI, no lid lag, anicteric sclera Mouth: no lip lesion, mucus membranes moist Cardiovascular: S1S2 reg, no murmur, positive posterior tibial pulse bilateral, Lungs: CTA bilateral, no rhonchi, no rales , no accessory muscle use Abdominal: soft, tender to palpation suprapubic, no guarding, no appreciable organomegaly Ext: no gross muscle atrophy, no edema, no contractures Neuro: CN II-XI grossly intact, no focal neuro deficits Psych: Alert, oriented, appropriate affect Acute urinary tract infection complicated with bilateral urethral stents in place -Continue with Zosyn, if Urine culture again show pseudomonas will need a prolonged course of ABX given the fact of indwelling stents. -Await urine culture -Urology recommendations appreciated -Outpatient follow-up for stent removal Diabetes mellitus type 2 -Hold metformin -Sliding-scale insulin - Hypertension, controlled -Continue with metoprolol -Follow blood pressures BPH -Continue with Flomax Dyslipidemia -Continue with statin therapy DVT prophylaxis: SCDs Discussed with: patient, nursing Anticipated discharge: 1-[address]: home A total of 25 minutes was spent on the care of this complex patient more than 50% of the time was spent in counseling and care coordination. Objective - Vital Signs Vital signs: Vital Signs Temp 98.5 F 07/21/20 08:00 Pulse 73 07/21/20 08:00 Resp 16 07/21/20 08:00 BP 125/66 07/21/20 08:00 Pulse Ox 92 L 07/21/20 08:00 Intake & Output 07/20/20 07/21/20 07/21/20 18:59 06:59 18:59 Weight 108.862 kg 108.862 kg Other: # Voids 2 # Bowel Movements 0 - Labs CBC & Chem 7: 07/20/20 19:10 07/20/20 19:10 Labs: Abnormal Lab Results - Last 24 Hours (Table) 07/20/20 07/20/20 07/20/20 Range/Units 19:10 19:10 19:21 RBC 3.73 L (4.30-5.90) m/uL Hgb 11.8 L (13.0-17.5) gm/dL Hct 35.1 L (39.0-53.0) % Lymphocytes # 0.6 L (1.0-4.8) k/uL Sodium 135 L (137-145) mmol/L Glucose 124 H (74-99) mg/dL POC Glucose (mg/dL) (75-99) mg/dL Urine Protein 1+ H (Negative) Urine Blood Moderate H (Negative) Ur Leukocyte Esterase Large H (Negative) Urine RBC 74 H (0-5) /hpf Urine WBC >182 H (0-5) /hpf Urine WBC Clumps Moderate H (None) /hpf Urine Bacteria Rare H (None) /hpf 07/21/20 07/21/20 Range/Units 07:29 11:19 RBC (4.30-5.90) m/uL Hgb (13.0-17.5) gm/dL Hct (39.0-53.0) % Lymphocytes # (1.0-4.8) k/uL Sodium (137-145) mmol/L Glucose (74-99) mg/dL POC Glucose (mg/dL) 124 H 109 H (75-99) mg/dL Urine Protein (Negative) Urine Blood (Negative) Ur Leukocyte Esterase (Negative) Urine RBC (0-5) /hpf Urine WBC (0-5) /hpf Urine WBC Clumps (None) /hpf Urine Bacteria (None) /hpf Microbiology - Last 24 Hours (Table) 07/20/20 19:21 Urine Culture - Preliminary Urine,Voided
[2020-07-21 18:01] LABS: Glucose,Whole Blood 135 mg/dL (75-99)
[2020-07-21] MEDS: METOPROLOL SUCCINATE (ER) 50 MG TAB.ER.24H PO SCH (21:11)
[2020-07-21] MEDS: ATORVASTATIN 40 MG TAB PO SCH (21:11)
[2020-07-21] MEDS: TAMSULOSIN 0.4 MG CAP.ER.24H PO SCH (21:11)
[2020-07-21 21:21] LABS: Glucose,Whole Blood 126 mg/dL (75-99)
[2020-07-22] MEDS: HEPARIN SODIUM,PORCINE 5,000 UNIT/ML 1 ML VIAL SQ SCH ×4 (00:24→14:56)
[2020-07-22] MEDS: NON FORMULARY DRUG (Mirabegron [Myrbetriq] 25 MG Tab.Er.24h) PO SCH (00:26)
[2020-07-22] MEDS: PIPERACILLIN-TAZOBACTAM 3.375 GM in SODIUM CHLORIDE 0.9% 100 ML IVPB SCH ×3 (02:53→19:57)
[2020-07-22] MEDS: SODIUM CHLORIDE 0.9% 1,000 ML IV SCH ×3 (02:55→14:36)
[2020-07-22 05:11] LABS: HCT 30.1 % (39.0-53.0); MCH 31.3 pg (25.0-35.0); MCHC 32.6 g/dL (31.0-37.0); MCV 95.9 fL (80.0-100.0); Mean Platelet Volume 7.2; Platelet Count 159 k/uL (150-450); RBC 3.14 m/uL (4.30-5.90); WBC 5.7 k/uL (3.8-10.6)
[2020-07-22 05:17] LABS: HGB 9.8 gm/dL (13.0-17.5)
[2020-07-22 07:03] LABS: Glucose,Whole Blood 114 mg/dL (75-99)
[2020-07-22] MEDS: INSULIN ASPART (NovoLOG) 100 UNIT/ML VIAL SQ SCH ×3 (09:01→17:31)
[2020-07-22] MEDS: FAMOTIDINE 20 MG TAB PO SCH ×2 (09:02→21:07)
[2020-07-22 09:30] LABS: Anion Gap 5.3 mmol/L (4.00-12.00); BUN/Creat Ratio 15.56 Ratio (12.00-20.00); Calcium 9.5 mg/dL (8.7-10.3); Carbon Dioxide 26.7 mmol/L (21.6-31.8); Non-African American GFR(CKD) 90.6 (60.0-200.0); Potassium 4.1 mmol/L (3.5-5.5)
[2020-07-22 11:03] LABS: Glucose,Whole Blood 144 mg/dL (75-99)
--- NOTE | 2020-07-22 15:56 | P.PN ---
Subjective Progress Note Date: 07/22/20 (mariah charting seen at 1230) Principal diagnosis: dysuria Patient is a 65-year-old male with a history of prior renal calculi currently with stents in place secondary to nephrolithiasis and hydronephrosis with recent urinary tract infection secondary to pseudomonas approximately 2 weeks ago, diabetes mellitus, and prior prostate cancer who presented to the ER with complaints of fever as well as burning with urination. In the ER he underwent next extensive workup. He was found have mild hydronephrosis which was improved from prior CT scan. He was started on IV antibiotics and admitted. After review of his urine culture antibiotics were transitioned to Zosyn with recent pseudomonal infection. Urology was consulted and recommended IV antibiotics with continuation of oral antibiotics until stent can be removed by his urologist out of [place]. Patient seen and examined at bedside. Dysuria is getting better. No chest pain, shortness of breath, diarrhea. General: non toxic, no distress, appears at stated age Derm: warm, dry Head: atraumatic, normocephalic, symmetric Eyes: EOMI, no lid lag, anicteric sclera Mouth: no lip lesion, mucus membranes moist Cardiovascular: S1S2 reg, no murmur, positive posterior tibial pulse bilateral, Lungs: CTA bilateral, no rhonchi, no rales , no accessory muscle use Abdominal: soft, nontender to palpation, no guarding, no appreciable organomegaly Ext: no gross muscle atrophy, no edema, no contractures Neuro: CN II-XI grossly intact, no focal neuro deficits Psych: Alert, oriented, appropriate affect Acute urinary tract infection complicated with bilateral urethral stents in place -Continue with Zosyn, if Urine culture again show pseudomonas will need a prolonged course of ABX given the fact of indwelling stents. -Await urine culture- groening gram negative bacilli -Urology recommendations appreciated -Outpatient follow-up for stent removal Diabetes mellitus type 2 -resume metformin -Sliding-scale insulin Hypertension, controlled -Continue with metoprolol -Follow blood pressures BPH -Continue with Flomax Dyslipidemia -Continue with statin therapy DVT prophylaxis: SCDs Discussed with: patient, nursing Anticipated discharge: 1-[address]: home A total of 25 minutes was spent on the care of this complex patient more than 50% of the time was spent in counseling and care coordination. Objective - Vital Signs Vital signs: Vital Signs Temp 97.8 F 07/22/20 14:00 Pulse 84 07/22/20 14:00 Resp 16 07/22/20 14:00 BP 123/73 07/22/20 14:00 Pulse Ox 96 07/22/20 14:00 Intake & Output 07/21/20 07/22/20 07/22/20 18:59 06:59 18:59 Intake Total 600 Balance 600 Intake: Oral 600 Other: # Voids 2 1 - Labs CBC & Chem 7: 07/22/20 04:33 07/22/20 04:33 Labs: Abnormal Lab Results - Last 24 Hours (Table) 07/21/20 07/21/20 07/22/20 Range/Units 17:55 21:19 04:33 RBC 3.14 L (4.30-5.90) m/uL Hgb 9.8 L D (13.0-17.5) gm/dL Hct 30.1 L (39.0-53.0) % Glucose (70-110) mg/dL POC Glucose (mg/dL) 135 H 126 H (75-99) mg/dL 07/22/20 07/22/20 07/22/20 Range/Units 04:33 06:55 10:54 RBC (4.30-5.90) m/uL Hgb (13.0-17.5) gm/dL Hct (39.0-53.0) % Glucose 118 H (70-110) mg/dL POC Glucose (mg/dL) 114 H 144 H (75-99) mg/dL Microbiology - Last 24 Hours (Table) 07/20/20 19:18 Blood Culture - Preliminary Blood No Growth after 24 hours 07/20/20 19:21 Urine Culture - Preliminary Urine,Voided Gram Neg Bacilli
[2020-07-22 16:59] LABS: Glucose,Whole Blood 146 mg/dL (75-99)
[2020-07-22 20:07] LABS: Glucose,Whole Blood 137 mg/dL (75-99)
[2020-07-22] MEDS: TAMSULOSIN 0.4 MG CAP.ER.24H PO SCH (21:07)
[2020-07-22] MEDS: ATORVASTATIN 40 MG TAB PO SCH (21:07)
[2020-07-22] MEDS: METOPROLOL SUCCINATE (ER) 50 MG TAB.ER.24H PO SCH (21:07)
[2020-07-23] MEDS: HEPARIN SODIUM,PORCINE 5,000 UNIT/ML 1 ML VIAL SQ SCH ×3 (01:04→17:34)
[2020-07-23] MEDS: NON FORMULARY DRUG (Mirabegron [Myrbetriq] 25 MG Tab.Er.24h) PO SCH ×2 (01:04→23:42)
[2020-07-23] MEDS: PIPERACILLIN-TAZOBACTAM 3.375 GM in SODIUM CHLORIDE 0.9% 100 ML IVPB SCH ×3 (02:19→19:28)
[2020-07-23] MEDS: SODIUM CHLORIDE 0.9% 1,000 ML IV SCH ×4 (02:21→19:31)
[2020-07-23 07:35] LABS: Glucose,Whole Blood 108 mg/dL (75-99)
[2020-07-23 08:01] LABS: HCT 32.9 % (39.0-53.0); HGB 10.8 gm/dL (13.0-17.5); MCH 31.4 pg (25.0-35.0); MCHC 32.7 g/dL (31.0-37.0); MCV 96.1 fL (80.0-100.0); Mean Platelet Volume 7.2; Platelet Count 199 k/uL (150-450); RBC 3.42 m/uL (4.30-5.90); WBC 4.3 k/uL (3.8-10.6)
[2020-07-23] MEDS: INSULIN ASPART (NovoLOG) 100 UNIT/ML VIAL SQ SCH ×3 (08:32→17:34)
[2020-07-23] MEDS: metFORMIN 500 MG TAB PO SCH ×2 (08:33→17:50)
[2020-07-23] MEDS: FAMOTIDINE 20 MG TAB PO SCH ×2 (08:33→21:16)
[2020-07-23 11:29] LABS: Glucose,Whole Blood 99 mg/dL (75-99)
[2020-07-23 13:44] LABS: African American GFR (CKD) 82.4 (60.0-200.0); BUN/Creat Ratio 13.64 Ratio (12.00-20.00); Calcium 10.1 mg/dL (8.7-10.3); Non-African American GFR(CKD) 71.1 (60.0-200.0); Potassium 4.6 mmol/L (3.5-5.5)
--- NOTE | 2020-07-23 14:59 | P.CONS ---
<Laura Brady Vero - Last Filed: 07/23/20 14:34> History of Present Illness - Reason for Consult Consult date: 07/23/20 Pseudomonas UTI with stents - History of Present Illness HISTORY OF PRESENT ILLNESS This is a 65-year-old male who gives history of kidney stones starting about 6 weeks ago was diagnosed with bilateral kidney stones and was treated at [facility] by his urologist underwent laser treatment with stent placement 2. He did have urinary retention secondary to kidney stones and again underwent a second procedure and then stents. He was scheduled to have these removed on Wednesday. He was also treated at [facility] 2 weeks ago and placed on Cipro. On Wednesday afternoon he started running a fever of 101.1 and did not feel well. He came into the emergency center on advice of his PCP. He denies having any chest pain, cough, shortness of breath, sore throat. He denies abdominal pain, nausea, vomiting or diarrhea. He states he has a little pain with urination but decreased. Urine culture was Pseudomonas and thus this culture was initiated. Patient has been afebrile since afternoon of July 21. WBC is 4.3, hemoglobin 10.8, creatinine 1.1. Urinalysis turbid, leukoesterase large, RBC 74, the PVCs greater than 182. Patterson virus not detected. REVIEW OF SYSTEMS Constitutional: Reports fever, Reports chills. No weight change. No weakness, fatigue or lethargy. No daytime sleepiness. EENT: No headache. No nasal drainage or congestion. No sore throat. Lungs: No shortness of breath, cough, no sputum production. No wheezing. Cardiovascular: No chest pain, no lower extremity edema. Abdominal: No abdominal pain. No nausea, vomiting. No diarrhea. No constipation. Genitourinary: Mild dysuria, increased frequency, urgency. No urinary retention. Musculoskeletal: No myalgias. No back pain. No neck pain. Integumentary: No wounds, no lesions. No rash or pruritus. Neurologic: No aphasia. No facial droop. No change in mentation. PHYSICAL EXAMINATION Gen: This is a 65-year-old male. He is sitting up in a chair at the bedside and appears to be comfortable and in no acute distress. VS: Afebrile, heart rate 69, blood pressure 113/75, pulse ox 96% on room air. HEENT: Head is atraumatic, normocephalic. Pupils equal, round. Sclerae is anicteric. NECK: Supple. No JVD. No lymphadenopathy. No thyromegaly. LUNGS: Clear to auscultation. No wheezes or rhonchi. No intercostal retraction s. HEART: Regular rate and rhythm. No murmur. ABDOMEN: Soft. Bowel sounds are present. No masses. No tenderness. EXTREMITIES: No pedal edema. No calf tenderness. NEUROLOGICAL: Patient is awake, alert and oriented x3. Cranial nerves 2 through 12 are grossly intact. ASSESSMENT Pseudomonas urinary tract infection secondary to stents and recent surgical manipulation PLAN Continue Zosyn Midline order with plan for 2 weeks of IV antibiotics Further recommendations based upon patient's clinical course Thank you kindly for this consultation. The above dictated assessment and findings were discussed with Dr. Crawford. The impression and plan of care have been directed as dictated. Laura Brady nurse practitioner acting as scribe for Dr. Crawford. Past Medical History Past Medical History: Cancer, Diabetes Mellitus, Hypertension, Prostate Disorder Additional Past Medical History / Comment(s): prostate CA- History of Any Multi-Drug Resistant Organisms: None Reported Past Surgical History: Orthopedic Surgery Additional Past Surgical History / Comment(s): Lithotripsy with stents Past Anesthesia/Blood Transfusion Reactions: No Reported Reaction Past Psychological History: No Psychological Hx Reported Smoking Status: Never smoker Past Alcohol Use History: Occasional Past Drug Use History: None Reported - Past Family History Mother Family Medical History: Congestive Heart Failure (CHF) Father Family Medical History: Cancer Additional Family Medical History / Comment(s): stomach cancer at age 79 Sister(s) Family Medical History: Cancer Additional Family Medical History / Comment(s): colon cancer age 63 Medications and Allergies Home Medications Medication Instructions Recorded Confirmed Type Famotidine 20 mg PO BID 07/01/20 07/20/20 History Metoprolol Succinate (ER) [Toprol 50 mg PO HS 07/01/20 07/20/20 History XL] Rosuvastatin [Crestor] 20 mg PO HS 07/01/20 07/20/20 History Tamsulosin [Flomax] 0.4 mg PO HS 07/01/20 07/20/20 History metFORMIN HCL ER [Glucophage Xr] 500 mg PO DAILY 07/01/20 07/20/20 History Acetaminophen Tab [Tylenol] 1,500 mg PO ONCE PRN 07/20/20 07/20/20 History Mirabegron [Myrbetriq] 25 mg PO DIRECTED 07/20/20 07/20/20 History Allergies Allergy/AdvReac Type Severity Reaction Status Date / Time No Known Allergies Allergy Verified 07/20/20 22:10 Physical Exam Vitals: Vital Signs Temp Pulse Resp BP Pulse Ox 07/23/20 08:00 69 18 07/23/20 07:35 97.9 F 69 18 113/75 96 07/23/20 03:00 98.4 F 65 16 105/67 95 07/22/20 19:40 81 16 07/22/20 19:10 97.9 F 81 16 123/79 94 L 07/22/20 14:00 97.8 F 84 16 123/73 96 Intake and Output 07/22/20 07/23/20 07/23/20 22:59 06:59 14:59 Output Total 1075 Balance -1075 Output: Urine 1075 Other: Voiding Method Toilet Toilet Results CBC & Chem 7: 07/23/20 07:12 07/23/20 07:12 Labs: Abnormal Lab Results - Last 24 Hours (Table) 07/22/20 07/22/20 07/23/20 Range/Units 16:56 20:05 07:12 RBC 3.42 L (4.30-5.90) m/uL Hgb 10.8 L (13.0-17.5) gm/dL Hct 32.9 L (39.0-53.0) % Glucose (70-110) mg/dL POC Glucose (mg/dL) 146 H 137 H (75-99) mg/dL 07/23/20 07/23/20 Range/Units 07:12 07:33 RBC (4.30-5.90) m/uL Hgb (13.0-17.5) gm/dL Hct (39.0-53.0) % Glucose 111 H (70-110) mg/dL POC Glucose (mg/dL) 108 H (75-99) mg/dL Microbiology - Last 24 Hours (Table) 07/20/20 19:18 Blood Culture - Preliminary Blood No Growth after 48 hours 07/20/20 19:21 Urine Culture - Final Urine,Voided Pseudomonas aeruginosa <TyAntonietta - Last Filed: 07/23/20 22:35> Physical Exam Vitals: Vital Signs Temp Pulse Resp BP Pulse Ox 07/23/20 19:55 97.5 F L 82 18 112/72 98 07/23/20 14:00 97.5 F L 80 20 123/75 93 L 07/23/20 08:00 69 18 07/23/20 07:35 97.9 F 69 18 113/75 96 07/23/20 03:00 98.4 F 65 16 105/67 95 Intake and Output 07/23/20 07/23/20 07/23/20 06:59 14:59 22:59 Output Total 1075 Balance -1075 Output: Urine 1075 Other: Voiding Method Toilet Toilet # Voids 3 Results CBC & Chem 7: 07/23/20 07:12 07/23/20 07:12 Labs: Abnormal Lab Results - Last 24 Hours (Table) 07/23/20 07/23/20 07/23/20 Range/Units 07:12 07:12 07:33 RBC 3.42 L (4.30-5.90) m/uL Hgb 10.8 L (13.0-17.5) gm/dL Hct 32.9 L (39.0-53.0) % Glucose 111 H (70-110) mg/dL POC Glucose (mg/dL) 108 H (75-99) mg/dL 07/23/20 07/23/20 Range/Units 16:46 20:29 RBC (4.30-5.90) m/uL Hgb (13.0-17.5) gm/dL Hct (39.0-53.0) % Glucose (70-110) mg/dL POC Glucose (mg/dL) 115 H 134 H (75-99) mg/dL Microbiology - Last 24 Hours (Table) 07/20/20 19:18 Blood Culture - Preliminary Blood No Growth after 72 hours 07/20/20 19:21 Urine Culture - Final Urine,Voided Pseudomonas aeruginosa Assessment and Plan Assessment: Patient with complicated Pseudomonas complicated urinary tract infection in this patient with a history of renal stones status post laser surgery and did have a hydronephrosis requiring bilateral ureteral stent placement admitted to hospital with urinary tract infection failing outpatient oral Cipro therapy and current cultures did show a Cipro resistant pathogen. (1) UTI (urinary tract infection) Current Visit: Yes Status: Acute Code(s): N39.0 - URINARY TRACT INFECTION, SITE NOT SPECIFIED SNOMED Code(s): 27584139 Plan: 1-we will switch her with antibiotic therapy to cefepime 2 g every 12 hours 2-midline for outpatient antibiotic therapy 3-planning for at least 2 weeks of IV cefepime 2 g every 12hr We will follow on clinical condition and cultures to further adjust medication if needed Thank you for this consultation we will follow the patient along with you Time with Patient: Greater than 30
--- NOTE | 2020-07-23 15:33 | XR ---
EXAMINATION TYPE: XR KUB DATE OF EXAM: 07/23/2020 3:12 PM CLINICAL HISTORY: Kidney stones. TECHNIQUE: Two supine KUB images of the abdomen are obtained. COMPARISON: CT abdomen and pelvis July 01, 2020 and older study May 12, 2020. FINDINGS: Persistent bilateral double-J ureter stents redemonstrated and stable. Adjacent scattered b ilateral pelvic phleboliths. Small calculi along the course of the proximal ureter stents on CT less well-seen on plain films. Overall nonobstructive bowel gas pattern. Visualized osseous structures are intact. IMPRESSION: As above.
--- NOTE | 2020-07-23 16:51 | P.PN ---
Subjective Progress Note Date: 07/23/20 The patient is in the hospital with a uti w sepsis He has had multiple urological procedures for stones at [facility] He has bilateral ureteral stents A kub today doesnt show obvious stones. The patient wishes to transfer his care here to due to travel issues. He can be set up for cysto with bilateral s tent removal and bilateral ureteroscopy by Dr Reese or myself next week as an outpatient. He has been instructed to call us upon discharge Objective - Vital Signs Vital signs: Vital Signs Temp 97.5 F L 07/23/20 14:00 Pulse 80 07/23/20 14:00 Resp 20 07/23/20 14:00 BP 123/75 07/23/20 14:00 Pulse Ox 93 L 07/23/20 14:00 Intake & Output 07/22/20 07/23/20 07/23/20 18:59 06:59 18:59 Output Total 1075 Balance -1075 Output: Urine 1075 Other: Voiding Method Toilet Toilet - Labs CBC & Chem 7: 07/23/20 07:12 07/23/20 07:12 Labs: Abnormal Lab Results - Last 24 Hours (Table) 07/22/20 07/22/20 07/23/20 Range/Units 16:56 20:05 07:12 RBC 3.42 L (4.30-5.90) m/uL Hgb 10.8 L (13.0-17.5) gm/dL Hct 32.9 L (39.0-53.0) % Glucose (70-110) mg/dL POC Glucose (mg/dL) 146 H 137 H (75-99) mg/dL 07/23/20 07/23/20 Range/Units 07:12 07:33 RBC (4.30-5.90) m/uL Hgb (13.0-17.5) gm/dL Hct (39.0-53.0) % Glucose 111 H (70-110) mg/dL POC Glucose (mg/dL) 108 H (75-99) mg/dL Microbiology - Last 24 Hours (Table) 07/20/20 19:18 Blood Culture - Preliminary Blood No Growth after 48 hours 07/20/20 19:21 Urine Culture - Final Urine,Voided Pseudomonas aeruginosa
[2020-07-23 16:53] LABS: Glucose,Whole Blood 115 mg/dL (75-99)
--- NOTE | 2020-07-23 18:48 | P.PN ---
Subjective Progress Note Date: 07/23/20 (delayed charting seen at 1145) Principal diagnosis: dysuria Patient is a 65-year-old male with a history of prior renal calculi currently with stents in place secondary to nephrolithiasis and hydronephrosis with recent urinary tract infection secondary to pseudomonas approximately 2 weeks ago, diabetes mellitus, and prior prostate cancer who presented to the ER with complaints of fever as well as burning with urination. In the ER he underwent next extensive workup. He was found have mild hydronephrosis which was improved from prior CT scan. He was started on IV antibiotics and admitted. After review of his urine culture antibiotics were transitioned to Zosyn with recent pseudomonal infection. Urology was consulted and recommended IV antibiotics with continuation of oral antibiotics until stent can be removed by his urologist out of [place]. Urine culture came back as pseudomonas sensitive to IV ABC only. Will complete 2 week of IV abx. Dr. Crawford consulted for management. Patient seen and examined at bedside. Frustrated about need for IV ABX. Midline explained in detail. No chest pain, nausea, vomiting, or diarrhea. General: non toxic, no distress, appears at stated age Derm: warm, dry Head: atraumatic, normocephalic, symmetric Eyes: EOMI, no lid lag, anicteric sclera Mouth: no lip lesion, mucus membranes moist Cardiovascular: S1S2 reg, no murmur, positive posterior tibial pulse bilateral, Lungs: CTA bilateral, no rhonchi, no rales , no accessory muscle use Abdominal: soft, nontender to palpation, no guarding, no appreciable organomegaly Ext: no gross muscle atrophy, no edema, no contractures Neuro: CN II-XI grossly intact, no focal neuro deficits Psych: Alert, oriented, appropriate affect Pseudomonas Acute urinary tract infection, complicated with bilateral ureteral stents in place, recurrent -Discussed with infectious disease. Cefepime for 2 week course on discharge via midline. -Urology recommendations appreciated. Follow-up outpatient next week for removal of stent Diabetes mellitus type 2 -metformin -Sliding-scale insulin Hypertension, controlled -Continue with metoprolol -Follow blood pressures BPH -Continue with Flomax Dyslipidemia -Continue with statin therapy DVT prophylaxis: SCDs Discussed with: patient, nursing Anticipated discharge: In a.m. once IV antibiotics have been arranged Anticipated discharge place: home A total of 25 minutes was spent on the care of this complex patient more than 50% of the time was spent in counseling and care coordination. Objective - Vital Signs Vital signs: Vital Signs Temp 97.5 F L 07/23/20 14:00 Pulse 80 07/23/20 14:00 Resp 20 07/23/20 14:00 BP 123/75 07/23/20 14:00 Pulse Ox 93 L 07/23/20 14:00 Intake & Output 07/22/20 07/23/20 07/23/20 18:59 06:59 18:59 Output Total 1075 Balance -1075 Output: Urine 1075 Other: Voiding Method Toilet Toilet # Voids 3 - Labs CBC & Chem 7: 07/23/20 07:12 07/23/20 07:12 Labs: Abnormal Lab Results - Last 24 Hours (Table) 07/22/20 07/23/20 07/23/20 Range/Units 20:05 07:12 07:12 RBC 3.42 L (4.30-5.90) m/uL Hgb 10.8 L (13.0-17.5) gm/dL Hct 32.9 L (39.0-53.0) % Glucose 111 H (70-110) mg/dL POC Glucose (mg/dL) 137 H (75-99) mg/dL 07/23/20 07/23/20 Range/Units 07:33 16:46 RBC (4.30-5.90) m/uL Hgb (13.0-17.5) gm/dL Hct (39.0-53.0) % Glucose (70-110) mg/dL POC Glucose (mg/dL) 108 H 115 H (75-99) mg/dL Microbiology - Last 24 Hours (Table) 07/20/20 19:18 Blood Culture - Preliminary Blood No Growth after 48 hours 07/20/20 19:21 Urine Culture - Final Urine,Voided Pseudomonas aeruginosa
[2020-07-23 20:32] LABS: Glucose,Whole Blood 134 mg/dL (75-99)
[2020-07-23] MEDS: TAMSULOSIN 0.4 MG CAP.ER.24H PO SCH (21:15)
[2020-07-23] MEDS: ATORVASTATIN 40 MG TAB PO SCH (21:16)
[2020-07-23] MEDS: METOPROLOL SUCCINATE (ER) 50 MG TAB.ER.24H PO SCH (21:16)
[2020-07-23] MEDS: CEFEPIME 2 GM in SODIUM CHLORIDE 0.9% 100 ML IVPB SCH (23:48)
[2020-07-24] MEDS: HEPARIN SODIUM,PORCINE 5,000 UNIT/ML 1 ML VIAL SQ SCH ×2 (01:00→07:44)
[2020-07-24 01:24] VITALS: BP 122/74; TEMP 97.4
[2020-07-24] MEDS: SODIUM CHLORIDE 0.9% 1,000 ML IV SCH ×2 (05:37→07:53)
[2020-07-24 07:19] LABS: Glucose,Whole Blood 104 mg/dL (75-99)
[2020-07-24] MEDS: INSULIN ASPART (NovoLOG) 100 UNIT/ML VIAL SQ SCH ×2 (07:20→11:10)
[2020-07-24] MEDS: metFORMIN 500 MG TAB PO SCH (07:43)
[2020-07-24] MEDS: CEFEPIME 2 GM in SODIUM CHLORIDE 0.9% 100 ML IVPB SCH (07:44)
[2020-07-24] MEDS: FAMOTIDINE 20 MG TAB PO SCH (07:44)
[2020-07-24 08:20] VITALS: PULSE 74; RESP 16
[2020-07-24 11:24] LABS: Glucose,Whole Blood 130 mg/dL (75-99)
--- NOTE | 2020-07-24 14:05 | P.DS ---
Providers Date of admission: 07/20/20 21:19 Expected date of discharge: 07/24/20 Attending physician: Nikki Delgadillo DO Consults: 07/21/20 11:50 Consult Physician Routine Consulting Provider: Clive Reese Consult Reason/Comments: UTI Do you want consulting provider notified?: Already Contacted 07/23/20 08:01 Consult Physician Routine Consulting Provider: Antonietta Crawford Consult Reason/Comments: Pseudomonas UTI with stents in place out pt IV ABX Do you want consulting provider notified?: Yes 07/23/20 13:30 Consult Physician Routine Consulting Provider: Clive Reese Consult Reason/Comments: Patient questions regarding stent removal Do you want consulting provider notified?: Yes Primary care physician: Jesica Torres MD Hospital Course: Discharge Diagnosis: Pseudomonas Acute urinary tract infection, complicated with bilateral ureteral stents in place, recurrent Diabetes mellitus type 2 Hypertension, controlled BPH Dyslipidemia Hospital Course: Patient is a 65-year-old male with a history of prior renal calculi currently with stents in place secondary to nephrolithiasis and hydronephrosis with recent urinary tract infection secondary to pseudomonas approximately 2 weeks ago, diabetes mellitus, and prior prostate cancer who presented to the ER with complaints of fever as well as burning with urination. In the ER he underwent next extensive workup. He was found have mild hydronephrosis which was improved from prior CT scan. He was started on IV antibiotics and admitted. After review of his urine culture antibiotics were transitioned to Zosyn with recent pseudomonal infection. Urology was consulted and recommended IV antibiotics with continuation of oral antibiotics until stent can be removed. Urine culture came back as pseudomonas sensitive to IV ABC only. Will complete 2 week of IV abx. Dr. Crawford consulted for management. He will be on cefepime. He will have home infusion with nursing. He will follow with Dr. Raymond for removal of stents. Discharged home in stable condition. He will follow with his PCP as well. Patient seen and examined at bedside. No chest pain, SOB, nausea, or vomiting. Dysuria is improving. Vital signs reviewed and stable. General: non toxic, no distress, appears at stated age Derm: warm, dry Head: atraumatic, normocephalic, symmetric Eyes: EOMI, no lid lag, anicteric sclera Mouth: no lip lesion, mucus membranes moist Cardiovascular: S1S2 reg, no murmur, positive posterior tibial pulse bilateral, Lungs: CTA bilateral, no rhonchi, no rales , no accessory muscle use Abdominal: soft, nontender to palpation, no guarding, no appreciable organomegaly Ext: no gross muscle atrophy, no edema, no contractures Neuro: CN II-XI grossly intact, no focal neuro deficits Psych: Alert, oriented, appropriate affect A total of 35 minutes of time were spent preparing this complex discharge summary . Patient Condition at Discharge: Stable Plan - Discharge Summary Discharge Rx Participant: No New Discharge Prescriptions: No Action Tamsulosin [Flomax] 0.4 mg PO HS Rosuvastatin [Crestor] 20 mg PO HS Metoprolol Succinate (ER) [Toprol XL] 50 mg PO HS Famotidine 20 mg PO BID metFORMIN HCL ER [Glucophage Xr] 500 mg PO DAILY Acetaminophen Tab [Tylenol] 1,500 mg PO ONCE PRN PRN Reason: Fever And/ Or Pain Mirabegron [Myrbetriq] 25 mg PO DIRECTED Discharge Medication List Famotidine 20 mg PO BID 07/01/20 [History] Metoprolol Succinate (ER) [Toprol XL] 50 mg PO HS 07/01/20 [History] Rosuvastatin [Crestor] 20 mg PO HS 07/01/20 [History] Tamsulosin [Flomax] 0.4 mg PO HS 07/01/20 [History] metFORMIN HCL ER [Glucophage Xr] 500 mg PO DAILY 07/01/20 [History] Acetaminophen Tab [Tylenol] 1,500 mg PO ONCE PRN 07/20/20 [History] Mirabegron [Myrbetriq] 25 mg PO DIRECTED 07/20/20 [History] Follow up Appointment(s)/Referral(s): [facility], [NON-STAFF] - 07/24/20 Jesica Torres MD [Primary Care Provider] - 1-2 days MID,Infusion [NON-STAFF] - 07/24/20 Activity/Diet/Wound Care/Special Instructions: Activity: [] Diet: [] Special Instructions: Your ureteral stents should be removed while still on antibiotic therapy Completion Date ____ . Pseudomonas UTI, recurrent second round of antibiotics.
--- NOTE | 2020-07-24 16:21 | PN ---
PROGRESS NOTE DATE OF SERVICE: 07/24/2020 REASON FOR FOLLOWUP: Complicated Pseudomonas urinary tract infection. INTERVAL HISTORY: The patient is currently afebrile. The patient is breathing comfortably, feeling better. Denies having any chest pain, shortness of breath or cough. No abdominal pain or diarrhea. PHYSICAL EXAMINATION: Blood pressure 122/74 with a pulse of 74, temperature 97.4. He is 90% on room air. General description is a middle-aged male up in the chair in no distress. RESPIRATORY SYSTEM: Unlabored breathing. Clear to auscultation anteriorly. HEART: S1, S2. Regular rate and rhythm. ABDOMEN: Soft. No tenderness. LABS: No new labs have been obtained today. Blood culture has been negative. DIAGNOSTIC IMPRESSION AND PLAN: Patient with pseudomonas complicated urinary tract infection. The patient is scheduled for removal of stents on Wednesday. We will continue cefepime 2 grams q.12 for another 2 weeks antibiotic therapy and close outpatient followup. His questions and concerns were answered. MMODL / IJN: [id number] /
--- NOTE | 2020-07-26 11:42 | CDI ---
Documentation Clarification Form Date: 07/26/2020 11:40:00 AM From: Leana Lam Phone: Please call Shanell Krause at from 8-5pm for questions Admit Date: 07/20/2020 09:19:00 PM Patient Name: Noe Barba Visit Number: [id number] Discharge Date: 07/24/2020 04:14:00 PM ATTENTION: The Clinical Documentation Specialists (CDI) and [facility] Coding Staff appreciate your assistance in clarifying documentation. Please respond to the clarification below the line at the bottom and electronically sign. The CDI & [facility] Coding staff will review the response and follow-up if needed. Please note: Queries are made part of the Legal Health Record. If you have any questions, please contact the author of this message via ITS. Dr. Nikki Delgadillo, The diagnosis sepsis was documented in the 07/[address] Raymond, but is not noted in subsequent documentation. History/Risk Factors: pyonephrosis, calculus of kidney and ureter, BPH, hx of UTI and stones Clinical Indicators: T-100.4, P-100, R-18, BP-122/71, lactic acid-1.5 Treatment: IV Rocephin, IV Zoysn, IV fluids Please clarify if the sepsis was: Present/active/treated Sepsis ruled out Other, please specify Clinically unable to determine Sepsis ruled out MTDD
== END 2020-07-24 16:14 | disposition home health service (06) | DRG 690 ==
LOC: EC 18:16 → 5NMEDONC 21:19
PROVIDERS: ADMIT Internal Medicine; ATTEND Internal Medicine
PROC: 05HF33Z Insertion of Infusion Device into Left Cephalic Vein, Percutaneous Approach (ICD-10-PCS; principal; 2020-07-24 08:55)
DX: N13.6 Pyonephrosis (principal); N20.2 Calculus of kidney with calculus of ureter; Z16.23 Resistance to quinolones and fluoroquinolones; E11.9 Type 2 diabetes mellitus without complications; B96.5 Pseudomonas (aeruginosa) (mallei) (pseudomallei) as the cause of diseases classified elsewhere; Z20.828 Contact with and (suspected) exposure to other viral communicable diseases; E78.5 Hyperlipidemia, unspecified; I10 Essential (primary) hypertension; I49.3 Ventricular premature depolarization; N40.0 Benign prostatic hyperplasia without lower urinary tract symptoms; Z79.84 Long term (current) use of oral hypoglycemic drugs; Z79.899 Other long term (current) drug therapy; Z87.442 Personal history of urinary calculi; Z87.440 Personal history of urinary (tract) infections; Z85.46 Personal history of malignant neoplasm of prostate; Z92.3 Personal history of irradiation; Z98.890 Other specified postprocedural states; Z82.49 Family history of ischemic heart disease and other diseases of the circulatory system; Z80.0 Family history of malignant neoplasm of digestive organs
CPT/HCPCS: 36410; 36415; 74018; 76770; 76937; 80048; 80053; 81001; 83605; 85025; 85027; 87040; 87077; 87086; 87186; 87635; 96365; 99285

== ENCOUNTER → 2020-09-09 | Outpatient (CLI) | payer BC ==
[2020-09-09 14:25] LABS: Appearance,Urine Clear (Clear); Bacteria,Urine Occasional /hpf; Bilirubin,Urine Negative (Negative); Blood,Urine Large (Negative); Color,Urine Yellow; Glucose,Urine (UA) Negative (Negative); Ketones,Urine Negative (Negative); Leukocyte Esterase,Urine Large (Negative); Mucus,Urine Rare /hpf; Nitrite,Urine Negative (Negative); PH, Urine 5.5 (5.0-8.0); Protein,Urine 1+ (Negative); RBC,Urine >182 /hpf (0-5); Specific Gravity,Urine 1.013 (1.001-1.035); Squamous Epithelial Cell,Urine <1 /hpf (0-4); Urobilinogen,Urine <2.0 mg/dL (<2.0); WBC,Urine 20 /hpf (0-5)
== END | disposition home or self-care (01) ==
LOC: LABWHC1 13:27
PROVIDERS: ATTEND Internal Medicine Infectious Disease
DX: N39.0 Urinary tract infection, site not specified (principal)
CPT/HCPCS: 81001; 87086

== ENCOUNTER → 2021-05-14 | Outpatient (CLI) | payer BC | END | disposition home or self-care (01) | LOC: LABWHC1 15:50 | PROVIDERS: ATTEND Nurse Practitioner | DX: Z20.822 Contact with and (suspected) exposure to COVID-19 (principal); R05 Cough; R07.0 Pain in throat | CPT/HCPCS: U0003; C9803; U0005 ==